=== PATIENT | male | born 1990 | race Caucasian/White ===

== ENCOUNTER 2016-11-12 22:07 | Emergency (ER) | payer OTHER ==
[~2016-11-12] VITALS: Ht 175.3 cm; Wt 92.0 kg
[~2016-11-12 22:07] MED LIST: DEPA500T3 PO; TRAZ50TA4 PO; VIST25CA PO
[2016-11-12 22:09] VITALS: BP 134/82; PULSE 98; RESP 16; TEMP 98; O2SAT 97
[2016-11-12] MEDS ORDERED: TRAZ50TA12 PO (22:40)
[2016-11-12] MEDS ORDERED: DEPA500T3 PO (22:41)
--- NOTE | 2016-11-12 23:39 | PD ---
HPI . Polysubstance abuse Chief Complaint: Alcohol/Drug Intoxication Time Seen by Provider: 22:46 Travel History International Travel<30 days: No Contact w/Intl Traveler<30days: No Traveled to known affect area: No History of Present Illness HPI Patient presents complaining with polysubstance abuse. He is here requesting detox. He does not have any homicidal or suicidal ideation. PFSH Past Medical History ADHD: Yes Bipolar Disorder: Yes Depression: Yes Cancer: No Cardiovascular Problems: Yes (HTN) Diabetes: No Diminished Hearing: No Hypertension: Yes Psychiatric: Yes Immunizations Current: Yes Migraines: No Schizophrenia: Yes Seizures: No Thyroid Disease: No Ulcer: No Tetanus Vaccination: Unknown Influenza Vaccination: No Past Surgical History Appendectomy: No Cholecystectomy: No Other Surgery: No Social History Alcohol Use: Yes (daily ) Tobacco Use: Yes Substance Use: Yes (crack , ice, marijuana, darvocet daily ) Allergies-Medications (Allergen,Severity, Reaction): Coded Allergies: No Known Allergies (Verified , 11/12/16) Reported Meds & Prescriptions Reported Meds & Active Scripts Active Reported Depakote ER (Divalproex Sodium) 500 Mg Darlyn 500 Mg PO DAILY Trazodone (Trazodone HCl) 50 Mg Tab 50 Mg PO HS Review of Systems Except as stated in HPI: all other systems reviewed are Neg Psychiatric: Positive: Substance Abuse, No: Suicidal Ideations, Mood Disorder , Homicidal Ideation Physical Exam Narrative GENERAL: Awake and alert and in no acute distress. SKIN: Warm and dry. CARDIOVASCULAR: Regular rate and rhythm. RESPIRATORY: No accessory muscle use. MUSCULOSKELETAL: No obvious deformities. No edema. NEUROLOGICAL: Awake and alert. No obvious cranial nerve deficits. Motor grossly within normal limits. Normal speech. PSYCHIATRIC: Appropriate mood and affect; insight and judgment normal. He does not appear acutely intoxicated. Data Data Last Documented VS Vital Signs Date Time Temp Pulse Resp B/P Pulse Ox O2 Delivery O2 Flow Rate FiO2 11/12/16 22:09 98.0 98 16 134/82 97 MDM Medical Decision Making Medical Screen Exam Complete: Yes Emergency Medical Condition: Yes Differential Diagnosis Differential diagnosis includes but is not limited to polysubstance abuse, suicidal ideation, manipulative behavior Narrative Course Patient presents to us requesting detox. He does not have suicidal or homicidal ideation. He is not acutely intoxicated. He has been instructed to follow-up at [facility] Diagnosis Primary Impression: Polysubstance abuse Additional Instructions: Follow up at [facility] Disposition: 01 DISCHARGE HOME Condition: Stable Rachelle English MD Nov 12, 2016 23:39
== END 2016-11-13 06:23 | disposition home or self-care (01) ==
LOC: NEPA 22:07
DX: F19.10 Other psychoactive substance abuse, uncomplicated (principal); I10 Essential (primary) hypertension; Z72.0 Tobacco use
CPT/HCPCS: 99283

== ENCOUNTER 2016-11-20 20:15 | Emergency (ER) | payer OTHER ==
[~2016-11-20] VITALS: Ht 175.3 cm; Wt 86.0 kg
[~2016-11-20 20:15] MED LIST changes: +TRAZ50TA12 PO; -TRAZ50TA4 PO; -VIST25CA PO
[2016-11-20 20:19] VITALS: BP 136/83; PULSE 118; RESP 14; TEMP 98.1; O2SAT 98
[2016-11-20 22:36] LABS: AUTOMATED NEUTROPHIL # 6.4 TH/MM3 (1.8-7.7); BASOPHIL % 0.3 % (0.0-2.0); EOSINOPHIL # 0.3 TH/MM3 (0-0.4); HEMATOCRIT 41.3 % (39.0-51.0); HEMO FLAGS DIFF FINAL; LYMPH % 30.5 % (9.0-44.0); LYMPHOCYTE # 3.2 TH/MM3 (1.0-4.8); MEAN CELL VOLUME 87.5 FL (80.0-100.0); MEAN CORPUSCULAR HEMOGLOBIN 29.7 PG (27.0-34.0); MONO % 6.4 % (0.0-8.0); NEUT % 59.8 % (16.0-70.0); PLATELET COUNT 369 TH/MM3 (150-450); RED BLOOD COUNT 4.72 MIL/MM3 (4.50-5.90); RED CELL DISTRIBUTION WIDTH 14.9 % (11.6-17.2); WHITE BLOOD COUNT 10.6 TH/MM3 (4.0-11.0)
[2016-11-20 22:42] LABS: BLOOD, URINE NEG (NEG); COMMENT (UR) CULT NOT INDICATED; CULTURE IF INDICATED CULT NOT INDICATED; GLUCOSE,URINE NEG (NEG); KETONE, URINE TRACE mg/dL (NEG); NITRITE,URINE NEG (NEG); URINE COLOR YELLOW (YELLW/STRAW)
[2016-11-20 22:47] LABS: AMPHETAMINE, URINE NEG (NEG); BARBITURATES, URINE NEG (NEG); COCAINE, URINE POS (NEG)
[2016-11-20 22:51] LABS: ANION GAP 8 MEQ/L (5-15)
[2016-11-20 22:54] LABS: ALKALINE PHOSPHATASE 78 U/L (45-117); ALT (GPT) 20 U/L (12-78); AST (GOT) 9 U/L (15-37); BLOOD UREA NITROGEN 6 MG/DL (7-18); CHLORIDE 104 MEQ/L (98-107); GLOMERULAR FILTRATION RATE 115 ML/MIN (>89); POTASSIUM 4.3 MEQ/L (3.5-5.1); SODIUM (NA) 139 MEQ/L (136-145); TOTAL BILIRUBIN ADULT 0.1 MG/DL (0.2-1.0)
--- NOTE | 2016-11-20 23:36 | PD ---
HPI Chief Complaint: Psychiatric Symptoms Time Seen by Provider: 23:33 Travel History International Travel<30 days: No Contact w/Intl Traveler<30days: No Traveled to known affect area: No History of Present Illness HPI 26-year-old white male presents to emergency department requesting detox. He states that he would like to get into detox program or go to the [facility]. He has been there in the past. He states that he had been staying in a hotel but he has no where to go at this time. He admits to smoking crack cocaine. He states that he does marijuana, opiates and benzos as well. He also admits alcohol on occasion. Patient denies any suicidal or homicidal ideation. He denies any recent illness. He states merely he would like detox PFSH Past Medical History ADHD: Yes Bipolar Disorder: Yes Depression: Yes Cancer: No Cardiovascular Problems: Yes (HTN) Diabetes: No Diminished Hearing: No Hypertension: Yes Psychiatric: Yes Immunizations Current: Yes Migraines: No Schizophrenia: Yes Seizures: No Thyroid Disease: No Ulcer: No Tetanus Vaccination: Unknown Past Surgical History Surgical History: No Previous Surgery Appendectomy: No Cholecystectomy: No Other Surgery: No Social History Alcohol Use: Yes (daily ) Tobacco Use: Yes Substance Use: Yes (crack , ice, marijuana, opiates, and benzos) Allergies-Medications (Allergen,Severity, Reaction): Coded Allergies: No Known Allergies (Verified , 11/20/16) Reported Meds & Prescriptions Reported Meds & Active Scripts Active No Active Prescriptions or Reported Medications Review of Systems Except as stated in HPI: all other systems reviewed are Neg Psychiatric: Positive: Depression, Mood Disorder, Substance Abuse, No: Anxiety , Suicidal Ideations, Disorder of Thought, Homicidal Ideation Physical Exam Narrative GENERAL: Well-nourished, well-developed patient. SKIN: Warm and dry. HEAD: Normocephalic and atraumatic. EYES: No scleral icterus. No injection or drainage. ENT: No nasal drainage noted. Mucous membranes pink. Airway patent. NECK: Supple, trachea midline. Moves head freely without obvious discomfort. CARDIOVASCULAR: Regular rate and rhythm without murmurs, gallops, or rubs. RESPIRATORY: Breath sounds equal bilaterally. No accessory muscle use. GASTROINTESTINAL: Abdomen soft, non-tender, nondistended. EXTREMITIES: No cyanosis or edema. BACK: Nontender without obvious deformity. No CVA tenderness. NEURO: Patient is alert and oriented. no sensorimotor deficits. Nonfocal. Normal speech. PSYCH: No delusions. No auditory or visual hallucinations. Data Data Last Documented VS Vital Signs Date Time Temp Pulse Resp B/P Pulse Ox O2 Delivery O2 Flow Rate FiO2 11/20/16 20:19 98.1 118 14 136/83 98 Room Air Orders Complete Blood Count With Diff (11/20/16 22:18) Comprehensive Metabolic Panel (11/20/16 22:18) Urinalysis - C+S If Indicated (11/20/16 22:18) Psych Screen (11/20/16 22:18) Drug Screen, Random Urine (11/20/16 22:18) Alcohol (Ethanol) (11/20/16 22:18) Labs Laboratory Tests Test 11/20/16 22:20 White Blood Count 10.6 TH/MM3 Red Blood Count 4.72 MIL/MM3 Hemoglobin 14.0 GM/DL Hematocrit 41.3 % Mean Corpuscular Volume 87.5 FL Mean Corpuscular Hemoglobin 29.7 PG Mean Corpuscular Hemoglobin 34.0 % Concent Red Cell Distribution Width 14.9 % Platelet Count 369 TH/MM3 Mean Platelet Volume 7.4 FL Neutrophils (%) (Auto) 59.8 % Lymphocytes (%) (Auto) 30.5 % Monocytes (%) (Auto) 6.4 % Eosinophils (%) (Auto) 3.0 % Basophils (%) (Auto) 0.3 % Neutrophils # (Auto) 6.4 TH/MM3 Lymphocytes # (Auto) 3.2 TH/MM3 Monocytes # (Auto) 0.7 TH/MM3 Eosinophils # (Auto) 0.3 TH/MM3 Basophils # (Auto) 0.0 TH/MM3 CBC Comment DIFF FINAL Differential Comment Urine Color YELLOW Urine Turbidity CLEAR Urine pH 6.0 Urine Specific Franklin 1.014 Urine Protein NEG mg/dL Urine Glucose (UA) NEG mg/dL Urine Ketones TRACE mg/dL Urine Occult Blood NEG Urine Nitrite NEG Urine Bilirubin NEG Urine Urobilinogen 2.0 MG/DL Urine Leukocyte Esterase NEG Urine WBC 1 /hpf Microscopic Urinalysis Comment CULT NOT INDICATED Sodium Level 139 MEQ/L Potassium Level 4.3 MEQ/L Chloride Level 104 MEQ/L Carbon Dioxide Level 27.0 MEQ/L Anion Gap 8 MEQ/L Blood Urea Nitrogen 6 MG/DL Creatinine 0.80 MG/DL Estimat Glomerular Filtration 115 ML/MIN Rate Random Glucose 99 MG/DL Calcium Level 8.5 MG/DL Total Bilirubin 0.1 MG/DL Aspartate Amino Transf 9 U/L (AST/SGOT) Alanine Aminotransferase 20 U/L (ALT/SGPT) Alkaline Phosphatase 78 U/L Total Protein 7.0 GM/DL Albumin 3.3 GM/DL Urine Opiates Screen NEG Urine Barbiturates Screen NEG Urine Amphetamines Screen NEG Urine Benzodiazepines Screen NEG Urine Cocaine Screen POS Urine Cannabinoids Screen NEG Ethyl Alcohol Level LESS THAN 3 MG/DL MDM Medical Decision Making Medical Screen Exam Complete: Yes Emergency Medical Condition: Yes Medical Record Reviewed: Yes Interpretation(s) Laboratory Tests Test 11/20/16 22:20 White Blood Count 10.6 TH/MM3 Red Blood Count 4.72 MIL/MM3 Hemoglobin 14.0 GM/DL Hematocrit 41.3 % Mean Corpuscular Volume 87.5 FL Mean Corpuscular Hemoglobin 29.7 PG Mean Corpuscular Hemoglobin 34.0 % Concent Red Cell Distribution Width 14.9 % Platelet Count 369 TH/MM3 Mean Platelet Volume 7.4 FL Neutrophils (%) (Auto) 59.8 % Lymphocytes (%) (Auto) 30.5 % Monocytes (%) (Auto) 6.4 % Eosinophils (%) (Auto) 3.0 % Basophils (%) (Auto) 0.3 % Neutrophils # (Auto) 6.4 TH/MM3 Lymphocytes # (Auto) 3.2 TH/MM3 Monocytes # (Auto) 0.7 TH/MM3 Eosinophils # (Auto) 0.3 TH/MM3 Basophils # (Auto) 0.0 TH/MM3 CBC Comment DIFF FINAL Differential Comment Urine Color YELLOW Urine Turbidity CLEAR Urine pH 6.0 Urine Specific Franklin 1.014 Urine Protein NEG mg/dL Urine Glucose (UA) NEG mg/dL Urine Ketones TRACE mg/dL Urine Occult Blood NEG Urine Nitrite NEG Urine Bilirubin NEG Urine Urobilinogen 2.0 MG/DL Urine Leukocyte Esterase NEG Urine WBC 1 /hpf Microscopic Urinalysis Comment CULT NOT INDICATED Sodium Level 139 MEQ/L Potassium Level 4.3 MEQ/L Chloride Level 104 MEQ/L Carbon Dioxide Level 27.0 MEQ/L Anion Gap 8 MEQ/L Blood Urea Nitrogen 6 MG/DL Creatinine 0.80 MG/DL Estimat Glomerular Filtration 115 ML/MIN Rate Random Glucose 99 MG/DL Calcium Level 8.5 MG/DL Total Bilirubin 0.1 MG/DL Aspartate Amino Transf 9 U/L (AST/SGOT) Alanine Aminotransferase 20 U/L (ALT/SGPT) Alkaline Phosphatase 78 U/L Total Protein 7.0 GM/DL Albumin 3.3 GM/DL Urine Opiates Screen NEG Urine Barbiturates Screen NEG Urine Amphetamines Screen NEG Urine Benzodiazepines Screen NEG Urine Cocaine Screen POS Urine Cannabinoids Screen NEG Ethyl Alcohol Level LESS THAN 3 MG/DL Differential Diagnosis Differential diagnoses: Alcohol intoxication, substance abuse, electrolyte abnormality, malingering Narrative Course This is substance abuse. We will attempt to find a detox facility. Scripts No Active Prescriptions or Reported Meds Condition: Salvador Gutierrez Nov 20, 2016 23:36
[2016-11-21 00:20] VITALS: BP 133/80; PULSE 104; RESP 16; O2SAT 97
[2016-11-21 04:20] VITALS: BP 137/84; PULSE 101; RESP 16; O2SAT 96
[2016-11-21 09:44] VITALS: BP 132/78; TEMP 98.2
== END 2016-11-21 09:46 ==
LOC: NEPB 20:15
DX: F19.10 Other psychoactive substance abuse, uncomplicated (principal); F14.10 Cocaine abuse, uncomplicated; F11.90 Opioid use, unspecified, uncomplicated; F12.90 Cannabis use, unspecified, uncomplicated; I10 Essential (primary) hypertension; F90.9 Attention-deficit hyperactivity disorder, unspecified type; F31.9 Bipolar disorder, unspecified; F32.9 Major depressive disorder, single episode, unspecified; F10.20 Alcohol dependence, uncomplicated; F20.9 Schizophrenia, unspecified; Z72.0 Tobacco use
CPT/HCPCS: 80053; 80307; 80320; 81001; 85025; 99284

== ENCOUNTER 2016-12-01 22:19 | Emergency (ER) | payer OTHER ==
[2016-12-01 22:22] VITALS: BP 143/79; PULSE 102; RESP 16; TEMP 97.9; O2SAT 97
== END 2016-12-01 23:36 | disposition left against medical advice (07) ==
LOC: NED 22:19
DX: R68.89 Other general symptoms and signs (principal)
CPT/HCPCS: 99281

== ENCOUNTER 2016-12-02 00:08 | Emergency (ER) | payer OTHER ==
[2016-12-02 00:09] VITALS: BP 132/61; PULSE 99; RESP 16; TEMP 98.2; O2SAT 97
--- NOTE | 2016-12-02 00:52 | PD ---
HPI Chief Complaint: Psychiatric Symptoms Time Seen by Provider: 00:46 Travel History International Travel<30 days: No Contact w/Intl Traveler<30days: No Traveled to known affect area: No History of Present Illness HPI Patient comes in requesting psychiatric evaluation. Patient states he uses drugs crack cocaine and others. Patient states he just doesn't feel right head. Patient states he's been out of his prescription of Seroquel feels like he needs his medications adjusted. Patient initially told triage nurse that he had thoughts of suicide however he currently denies any suicidal or homicidal ideations. Denies any medical complaints. Denies chest pain, shortness of breath, headache, fevers, nausea, vomiting, or abdominal pain. PFSH Past Medical History ADHD: Yes Bipolar Disorder: Yes Depression: Yes Cancer: No Cardiovascular Problems: Yes (HTN) Diabetes: No Diminished Hearing: No Hypertension: Yes Psychiatric: Yes Immunizations Current: Yes Migraines: No Schizophrenia: Yes Seizures: No Thyroid Disease: No Ulcer: No Past Surgical History Appendectomy: No Cholecystectomy: No Other Surgery: No Social History Alcohol Use: Yes (daily ) Tobacco Use: Yes Substance Use: Yes (crack , ice, marijuana, opiates, and benzos) Allergies-Medications (Allergen,Severity, Reaction): Coded Allergies: No Known Allergies (Verified , 12/02/16) Reported Meds & Prescriptions Reported Meds & Active Scripts Active No Active Prescriptions or Reported Medications Review of Systems Except as stated in HPI: all other systems reviewed are Neg Physical Exam Narrative GENERAL: Well-developed, well nourished, in no acute distress, and non-ill appearing. SKIN: Warm and dry. HEAD: Atraumatic. Normocephalic. EYES: Pupils equal and round. EOMI. No scleral icterus. No injection or drainage. ENT: No nasal bleeding or discharge. Mucous membranes pink and moist. NECK: Trachea midline. Supple. No nuclear rigidity. CARDIOVASCULAR: Regular rate and rhythm. No murmur appreciated. RESPIRATORY: No accessory muscle use. No respiratory distress. Clear to auscultation. Breath sounds equal bilaterally. MUSCULOSKELETAL: No obvious deformities. No clubbing. No cyanosis. No edema. Full range of motion. NEUROLOGICAL: Awake and alert. No obvious cranial nerve deficits. Motor grossly within normal limits. Normal speech. PSYCHIATRIC: Appropriate mood and affect; insight and judgment normal. Data Data Last Documented VS Vital Signs Date Time Temp Pulse Resp B/P Pulse Ox O2 Delivery O2 Flow Rate FiO2 12/02/16 00:09 98.2 99 16 132/61 97 Orders Complete Blood Count With Diff (12/02/16 00:45) Comprehensive Metabolic Panel (12/02/16 00:45) Psych Screen (12/02/16 00:45) Drug Screen, Random Urine (12/02/16 00:45) Alcohol (Ethanol) (12/02/16 00:45) Salicylates (Aspirin) (12/02/16 00:45) Tylenol (Acetaminophen) (12/02/16 00:45) Labs Laboratory Tests Test 12/02/16 00:55 White Blood Count 11.2 TH/MM3 Red Blood Count 4.69 MIL/MM3 Hemoglobin 13.9 GM/DL Hematocrit 40.9 % Mean Corpuscular Volume 87.2 FL Mean Corpuscular Hemoglobin 29.7 PG Mean Corpuscular Hemoglobin 34.1 % Concent Red Cell Distribution Width 14.6 % Platelet Count 345 TH/MM3 Mean Platelet Volume 7.5 FL Neutrophils (%) (Auto) 48.6 % Lymphocytes (%) (Auto) 35.4 % Monocytes (%) (Auto) 8.0 % Eosinophils (%) (Auto) 6.7 % Basophils (%) (Auto) 1.3 % Neutrophils # (Auto) 5.4 TH/MM3 Lymphocytes # (Auto) 4.0 TH/MM3 Monocytes # (Auto) 0.9 TH/MM3 Eosinophils # (Auto) 0.8 TH/MM3 Basophils # (Auto) 0.1 TH/MM3 CBC Comment DIFF FINAL Differential Comment Sodium Level 139 MEQ/L Potassium Level 3.7 MEQ/L Chloride Level 102 MEQ/L Carbon Dioxide Level 27.6 MEQ/L Anion Gap 9 MEQ/L Blood Urea Nitrogen 11 MG/DL Creatinine 0.70 MG/DL Estimat Glomerular Filtration 134 ML/MIN Rate Random Glucose 120 MG/DL Calcium Level 8.5 MG/DL Total Bilirubin 0.2 MG/DL Aspartate Amino Transf 9 U/L (AST/SGOT) Alanine Aminotransferase 17 U/L (ALT/SGPT) Alkaline Phosphatase 84 U/L Total Protein 6.8 GM/DL Albumin 3.4 GM/DL Salicylates Level 3.1 MG/DL Urine Opiates Screen NEG Acetaminophen Level LESS THAN 2.0 MCG/ML Urine Barbiturates Screen NEG Urine Amphetamines Screen NEG Urine Benzodiazepines Screen NEG Urine Cocaine Screen NEG Urine Cannabinoids Screen NEG Ethyl Alcohol Level LESS THAN 3 MG/DL MDM Medical Decision Making Medical Screen Exam Complete: Yes Emergency Medical Condition: Yes Medical Record Reviewed: Yes Differential Diagnosis Schizoaffective disorder, polysubstance abuse, substance-induced mood disorder, malingering, adjustment reaction, other Narrative Course Patient's medical record was reviewed and was noted the patient has been seen in the ER multiple times and found been lingering on multiple occasions secondary to poor weather outside secondary to the patient being homeless. Patient was cleared by psych for out patient follow up. Patient in no obvious distress upon re-evaluation. All pertinent laboratory result(s) discussed with patient/. Any questions/concerns in reference to patient diagnosis/condition discussed and clarified prior to patient's discharge. Reinforced sheer importance of close follow up with patient's primary physician or primary care clinic. Instructed patient to return to ED immediately, if symptoms return/worsen. Pt showed understanding of above instructions. Further instructions and recommendations were detailed in discharge paperwork. Pt ambulated without difficulty out of ED at discharge. Diagnosis Primary Impression: Malingering Referrals: [facility] Additional Instructions: Follow-up with your primary care physician this week. Return to the emergency department for any emergent conditions. Scripts No Active Prescriptions or Reported Meds Disposition: 01 DISCHARGE HOME Condition: Stable Ravinder Ramos Dec 02, 2016 00:52
[2016-12-02 01:07] LABS: AUTOMATED NEUTROPHIL # 5.4 TH/MM3 (1.8-7.7); BASOPHIL # 0.1 TH/MM3 (0-0.2); BASOPHIL % 1.3 % (0.0-2.0); EOSINOPHIL # 0.8 TH/MM3 (0-0.4); EOSINOPHIL % 6.7 % (0.0-4.0); HEMATOCRIT 40.9 % (39.0-51.0); HEMO FLAGS DIFF FINAL; LYMPH % 35.4 % (9.0-44.0); MEAN CELL VOLUME 87.2 FL (80.0-100.0); MEAN CORPUSCULAR HEMOGLOBIN 29.7 PG (27.0-34.0); MEAN CORPUSCULAR HGB CONC 34.1 % (32.0-36.0); NEUT % 48.6 % (16.0-70.0); PLATELET COUNT 345 TH/MM3 (150-450); RED BLOOD COUNT 4.69 MIL/MM3 (4.50-5.90); RED CELL DISTRIBUTION WIDTH 14.6 % (11.6-17.2); WHITE BLOOD COUNT 11.2 TH/MM3 (4.0-11.0)
[2016-12-02 01:18] LABS: AMPHETAMINE, URINE NEG (NEG); BARBITURATES, URINE NEG (NEG); COCAINE, URINE NEG (NEG)
[2016-12-02 01:28] LABS: ALT (GPT) 17 U/L (12-78); ANION GAP 9 MEQ/L (5-15); AST (GOT) 9 U/L (15-37); BICARBONATE 27.6 MEQ/L (21.0-32.0); BLOOD UREA NITROGEN 11 MG/DL (7-18); CHLORIDE 102 MEQ/L (98-107); GLOMERULAR FILTRATION RATE 134 ML/MIN (>89); POTASSIUM 3.7 MEQ/L (3.5-5.1); SODIUM (NA) 139 MEQ/L (136-145)
[2016-12-02 01:31] LABS: ACETAMINOPHEN LESS THAN 2.0 MCG/ML (10.0-30.0); ALKALINE PHOSPHATASE 84 U/L (45-117); TOTAL BILIRUBIN ADULT 0.2 MG/DL (0.2-1.0)
== END 2016-12-02 07:28 | disposition home or self-care (01) ==
LOC: NEPB 00:08
DX: R44.9 Unspecified symptoms and signs involving general sensations and perceptions (principal); I10 Essential (primary) hypertension; Z76.5 Malingerer [conscious simulation]; Z72.0 Tobacco use; Z59.0 Homelessness; Z86.59 Personal history of other mental and behavioral disorders
CPT/HCPCS: 80053; 80307; 85025; 99284

== ENCOUNTER 2016-12-04 07:00 | Emergency (ER) | payer OTHER ==
[~2016-12-04] VITALS: Ht 175.3 cm; Wt 86.0 kg
[2016-12-04 07:14] VITALS: BP 124/77; PULSE 78; RESP 17; TEMP 98.4; O2SAT 100
--- NOTE | 2016-12-04 07:28 | PD ---
HPI Chief Complaint: Psychiatric Symptoms Time Seen by Provider: 07:17 Travel History International Travel<30 days: No Contact w/Intl Traveler<30days: No Traveled to known affect area: No History of Present Illness HPI Patient is a 26-year-old male who presents emergency department for psychiatric evaluation. Patient told her triage nursing staff that he felt depressed and suicidal and wanted to jump in front of a moving vehicle. To me patient states that he is not suicidal, homicidal but is depressed and has been for the past for "a long time". Patient states that he was previously on some psychiatric medications but is not able to name them and is unable to tell me how long he sent off of them. When asked specifically if he feels suicidal or wants to hurt himself or anybody else patient states no. However when he was asked about his statement to her triage nursing staff, patient states that this is true. Patient is very evasive, and is a poor historian. Patient is been seen here in our emergency department several times recently for similar complaints with psychiatric evaluation. Patient stated to triage nursing staff that he had been drinking and using street drugs but denies any myself. PFSH Past Medical History ADHD: Yes Bipolar Disorder: Yes Depression: Yes Cancer: No Cardiovascular Problems: Yes (HTN) Diabetes: Yes Patient Takes Glucophage: No Diminished Hearing: No Hypertension: Yes Psychiatric: Yes Immunizations Current: Yes Migraines: No Schizophrenia: Yes Seizures: No Thyroid Disease: No Ulcer: No Past Surgical History Appendectomy: No Cholecystectomy: No Other Surgery: No Social History Alcohol Use: Yes (daily ) Tobacco Use: Yes Substance Use: Yes (crack , ice, marijuana, opiates, and benzos) Allergies-Medications (Allergen,Severity, Reaction): Coded Allergies: No Known Allergies (Verified , 12/02/16) Reported Meds & Prescriptions Reported Meds & Active Scripts Active No Active Prescriptions or Reported Medications Review of Systems ROS Limitations: Poor Historian Physical Exam Exam Limitations: Poor Historian Narrative GENERAL: Thin male in no acute distress SKIN: Warm and dry. HEAD: Normocephalic. EYES: Pupils equal and round. No scleral icterus. No injection or drainage. ENT: No nasal bleeding or discharge. Mucous membranes pink and moist. NECK: Supple CARDIOVASCULAR: Regular rate and rhythm. RESPIRATORY: No accessory muscle use. GASTROINTESTINAL: Abdomen soft, non-tender, nondistended. MUSCULOSKELETAL: No obvious deformities. No edema. NEUROLOGICAL: Awake and alert. Normal gait. Normal speech. PSYCHIATRIC: Blunted mood and affect with poor insight and judgment. Denies suicidal, homicidal ideation to myself but states that he has some suicidal ideation to nursing. Admits to feeling depressed Data Data Last Documented VS Vital Signs Date Time Temp Pulse Resp B/P Pulse Ox O2 Delivery O2 Flow Rate FiO2 12/04/16 07:14 98.4 78 17 124/77 100 Orders Psych Screen (12/04/16 07:19) Drug Screen, Random Urine (12/04/16 07:19) Alcohol (Ethanol) (12/04/16 07:19) MDM Medical Decision Making Medical Screen Exam Complete: Yes Emergency Medical Condition: Yes Medical Record Reviewed: Yes Differential Diagnosis 26-year-old male with history of polysubstance abuse, seizure effective/ antisocial personality disorder here with complaints of feeling depressed, and questionable suicidal ideation. Differential includes substance induced mood disorder, alcohol intoxication, depression, suicidal ideation, mood disorder NOS , schizoaffective disorder. Narrative Course Patient has had laboratory workup recently that was unremarkable. Blood alcohol and urine drug screen was ordered for psychiatric evaluation and patient was medically cleared. Diagnosis Primary Impression: Suicidal ideation Additional Impression: Substance induced mood disorder Scripts No Active Prescriptions or Reported Meds Miriam Dixon MD Dec 04, 2016 07:28
[2016-12-04 10:55] LABS: AMPHETAMINE, URINE NEG (NEG); BARBITURATES, URINE NEG (NEG); COCAINE, URINE POS (NEG)
[2016-12-04 11:01] VITALS: BP 122/72; PULSE 69; RESP 17; O2SAT 100
[2016-12-04 12:00] VITALS: BP 131/75; PULSE 87; RESP 18; TEMP 99; O2SAT 97
[2016-12-04 14:20] VITALS: BP 154/78; PULSE 84; RESP 18
[2016-12-04 18:05] VITALS: BP 128/68; PULSE 80; RESP 16
--- NOTE | 2016-12-04 20:13 | PD ---
History of Present Illness Chief Complaint: Psychiatric Symptoms Time Seen by Provider: 19:30 Travel History International Travel<30 Days: No Contact w/Intl Traveler<30days: No Known affected area: No Legal Status Legal Status: Gonzalez Act Gonzalez Act Signed By: Chad White History of Present Illness: History of Present Illness HPI Patient is a 26-year-old male with primary diagnosis history of substance abuse as well as substance induced mood disorder who presents to emergency department under a BA for psychiatric evaluation. Patient called the police and reported to them that he was sick of living and would like to run in front of a car. As per ED documentation included in this report " Patient told her triage nursing staff that he felt depressed and suicidal and wanted to jump in front of a moving vehicle. To me patient states that he is not suicidal, homicidal but is depressed and has been for the past for "a long time". Patient states that he was previously on some psychiatric medications but is not able to name them and is unable to tell me how long he sent off of them. When asked specifically if he feels suicidal or wants to hurt himself or anybody else patient states no. However when he was asked about his statement to her triage nursing staff, patient states that this is true. Patient is very evasive, and is a poor historian. EMR reviewed. This patient has been seen in ED multiple times in recent past for similar presentations. He frequently presents to the ed seeking halfway. He was recently evaluated and sent to the [facility] for treatment of substance abuse on November 20, 2016. Current toxicology is positive for cocaine. Patient is monitored in J pod. He has not presented any behavioral concerns other than having asked several times for discharge. I have kept him on the unit under close observation until I felt that he was able to be discharged safely. He denies suicidal or homicidal ideation. as well as denying any hallucinatory process. PFSH Past Medical History ADHD: Yes Bipolar Disorder: Yes Depression: Yes Cancer: No Cardiovascular Problems: Yes (HTN) Diabetes: Yes Patient Takes Glucophage: No Diminished Hearing: No Hypertension: Yes Psychiatric: Yes Immunizations Current: Yes Migraines: No Schizophrenia: Yes Seizures: No Thyroid Disease: No Ulcer: No Past Surgical History Appendectomy: No Cholecystectomy: No Other Surgery: No Psychiatric History Psychiatric History Hx Psychiatric Treatment: PT HAS A LONG PSYCHIATRIC HISTORY WITH HISTORY OF MULTIPLE INPATIENT ADMISSIONS. History of Inpatient Treatment: Yes Guns or firearms in home: No Social History Single male who reports he is staying with some friends Hx Alcohol Use: Yes (daily ) Hx Tobacco Use: Yes Hx Substance Use: Yes (crack , ice, marijuana, opiates, and benzos) Substance Use Type: Crack, Marijuana, Amphetamines-Stimulants, Benzos (Valium, Xanax), Heroin, Synth Opiates-Pain Pills Hx of Substance Use Treatment: Yes Family Psychiatric History None Allergies-Medications (Allergen,Severity, Reaction): Coded Allergies: No Known Allergies (Verified , 12/04/16) Reported Meds & Prescriptions Reported Meds & Active Scripts Active No Active Prescriptions or Reported Medications Review of Systems Except as stated in HPI: all other systems reviewed are Neg Exam Alert: Yes [place]: Person (ox4) Mood: Calm Affect: Labile Speech: Clear, Logical Eye Contact: Normal Memory Intact: Comment (not formally tetsted) Hallucinations: Other (deneis any) Delusions: No Suicidal: Ideation (deneis) Homicidal: Ideation (deneis any) Insight/Judgement poor . poor. MDM Medical Decision Making Medical Record Reviewed: Yes Assessment/Plan 26 year old male who has a hx of substance use who is under a BA after he called the police reporting his desire to . This in context of cocaine use. The patient was allowed ample time in J pod and exhibited no suicidality and no psychosis. He has requested discharge at this time. I have no reason to keep him here at this time. I strongly suspect that he fabricated suicidality in order to obtain halfway . Orders Psych Screen (12/04/16 07:19) Drug Screen, Random Urine (12/04/16 07:19) Alcohol (Ethanol) (12/04/16 07:19) Diet Regular Basic (12/04/16 Lunch) Diet Regular Basic (12/04/16 Dinner) Results Vital Signs Date Time Temp Pulse Resp B/P Pulse Ox O2 Delivery O2 Flow Rate FiO2 12/04/16 18:05 80 16 128/68 12/04/16 14:20 84 18 154/78 Room Air 12/04/16 12:00 99.0 87 18 131/75 97 Room Air 12/04/16 12:00 100 12/04/16 11:01 69 17 122/72 100 Room Air 12/04/16 07:14 98.4 78 17 124/77 100 Laboratory Tests Test 12/04/16 12/04/16 07:30 10:15 Ethyl Alcohol Level LESS THAN 3 Urine Opiates Screen NEG Urine Barbiturates Screen NEG Urine Amphetamines Screen NEG Urine Benzodiazepines Screen NEG Urine Cocaine Screen POS Urine Cannabinoids Screen NEG Diagnosis Primary Impression: Substance induced mood disorder Psychiatrically Cleared: Yes Referrals: [facility] (Out patient) as needed Departure Forms: Tests/Procedures Patient Instructions: General Instructions Additional Instructions: PLEASE RETURN TO EMERGENCY DEPARTMENT IF SYMPTOMS WORSEN Med/ Other Pt Specific Info: No Meds Exist/No RX given Prescriptions No Active Prescriptions or Reported Meds Disposition: 01 DISCHARGE HOME Condition: Stable Sharmila Zayas Dec 04, 2016 20:12
== END 2016-12-04 19:45 | disposition home or self-care (01) ==
LOC: NEPE 07:00 → NEPJ 19:45
DX: R45.851 Suicidal ideations (principal); F39 Unspecified mood [affective] disorder; F90.9 Attention-deficit hyperactivity disorder, unspecified type; F31.9 Bipolar disorder, unspecified; I10 Essential (primary) hypertension; E11.9 Type 2 diabetes mellitus without complications; F20.9 Schizophrenia, unspecified; F14.90 Cocaine use, unspecified, uncomplicated; F12.90 Cannabis use, unspecified, uncomplicated; F11.90 Opioid use, unspecified, uncomplicated; F15.90 Other stimulant use, unspecified, uncomplicated; Z72.0 Tobacco use
CPT/HCPCS: 80307; 99284

== ENCOUNTER 2016-12-05 01:18 | Emergency (ER) | payer OTHER ==
[2016-12-05 01:20] VITALS: BP 132/67; PULSE 92; RESP 14; TEMP 98.1; O2SAT 100
--- NOTE | 2016-12-05 02:14 | PD ---
HPI Chief Complaint: Psychiatric Symptoms Time Seen by Provider: 01:50 Travel History International Travel<30 days: No Contact w/Intl Traveler<30days: No Traveled to known affect area: No History of Present Illness HPI Patient comes emergency Department stating "I have no place to stay". Patient denies any suicidal or homicidal ideations. Patient denies any medical concerns. Denies any chest pain, shortness of breath, abdominal pain, fever, nausea, vomiting, or diarrhea. PFSH Past Medical History ADHD: Yes Bipolar Disorder: Yes Depression: Yes Cancer: No Cardiovascular Problems: Yes (HTN) Diabetes: Yes Diminished Hearing: No Hypertension: Yes Psychiatric: Yes Immunizations Current: Yes Migraines: No Schizophrenia: Yes Seizures: No Thyroid Disease: No Ulcer: No Past Surgical History Appendectomy: No Cholecystectomy: No Other Surgery: No Social History Alcohol Use: Yes (daily ) Tobacco Use: Yes Substance Use: Yes (crack , ice, marijuana, opiates, and benzos) Allergies-Medications (Allergen,Severity, Reaction): Coded Allergies: No Known Allergies (Verified , 12/05/16) Reported Meds & Prescriptions Reported Meds & Active Scripts Active No Active Prescriptions or Reported Medications Review of Systems Except as stated in HPI: all other systems reviewed are Neg Physical Exam Narrative GENERAL: Well-developed, well nourished, in no acute distress, and non-ill appearing. SKIN: Warm and dry. HEAD: Atraumatic. Normocephalic. EYES: Pupils equal and round. EOMI. No scleral icterus. No injection or drainage. ENT: No nasal bleeding or discharge. Mucous membranes pink and moist. NECK: Trachea midline. Supple. No nuclear rigidity. RESPIRATORY: No accessory muscle use. No respiratory distress. MUSCULOSKELETAL: No obvious deformities. No clubbing. No cyanosis. No edema. Full range of motion. NEUROLOGICAL: Awake and alert. No obvious cranial nerve deficits. Motor grossly within normal limits. Normal speech. PSYCHIATRIC: Appropriate mood and affect; insight and judgment normal. Data Data Last Documented VS Vital Signs Date Time Temp Pulse Resp B/P Pulse Ox O2 Delivery O2 Flow Rate FiO2 12/05/16 01:20 98.1 92 14 132/67 100 Room Air MDM Medical Decision Making Medical Screen Exam Complete: Yes Emergency Medical Condition: No Differential Diagnosis Malingering, substance abuse, homeless, other Narrative Course Patient in no obvious distress upon re-evaluation. Reinforced sheer importance of close follow up with Mitch Chi. Instructed patient to return to ED immediately for any emergent issues. Pt showed understanding of above instructions. Further instructions and recommendations were detailed in discharge paperwork. Pt ambulated without difficulty out of ED at discharge. Diagnosis Primary Impression: Malingering Additional Impression: Homeless Referrals: [facility] Additional Instructions: Follow-up with Epifanio Chi as previously instructed. Return to the emergency department for any emergent concerns. Scripts No Active Prescriptions or Reported Meds Disposition: 01 DISCHARGE HOME Condition: Stable Ravinder Ramos Dec 05, 2016 02:14
== END 2016-12-05 02:22 | disposition left against medical advice (07) ==
LOC: NEPA 01:18
DX: Z76.5 Malingerer [conscious simulation] (principal); Z59.0 Homelessness
CPT/HCPCS: 99281

== ENCOUNTER 2016-12-07 01:49 | Emergency (ER) | payer OTHER ==
[~2016-12-07] VITALS: Ht 175.3 cm; Wt 85.0 kg
[2016-12-07] MEDS ORDERED: SERO100T PO (02:11)
[2016-12-07] MEDS ORDERED: DEPA500T PO (02:11)
[2016-12-07 02:13] VITALS: BP 144/67; PULSE 101; RESP 20; TEMP 97.6; O2SAT 100
[2016-12-07 05:32] VITALS: BP 104/55; PULSE 96; RESP 20; O2SAT 97
--- NOTE | 2016-12-07 06:49 | PD ---
HPI Chief Complaint: Psychiatric Symptoms Time Seen by Provider: 06:46 Travel History International Travel<30 days: No Contact w/Intl Traveler<30days: No Traveled to known affect area: No History of Present Illness HPI 26-year-old white male with a history of polysubstance abuse presents to emergency department under Gonzalez act by PD. The patient contacted PD that if he did not get treatment for his substance abuse he would commit suicide. He stated that he was stabbed himself in the face. The patient admits to smoking crack cocaine prior to coming in. The patient denies any toxic ingestions. No homicidal ideation. No acute medical complaints. PFSH Past Medical History ADHD: Yes Bipolar Disorder: Yes Depression: Yes Cancer: No Cardiovascular Problems: Yes (HTN) Diabetes: Yes Diminished Hearing: No Hypertension: Yes Psychiatric: Yes Immunizations Current: Yes Migraines: No Schizophrenia: Yes Seizures: No Thyroid Disease: No Ulcer: No Tetanus Vaccination: > 5 Years Influenza Vaccination: No Past Surgical History Surgical History: No Previous Surgery Appendectomy: No Cholecystectomy: No Other Surgery: No Social History Alcohol Use: Yes (case beer per day) Tobacco Use: Yes (one pack) Substance Use: Yes (COCAINE) Allergies-Medications (Allergen,Severity, Reaction): Coded Allergies: No Known Allergies (Verified , 12/07/16) Reported Meds & Prescriptions Reported Meds & Active Scripts Active Reported Seroquel (Quetiapine Fumarate) 100 Mg Tab 100 Mg PO HS Depakote DR (Divalproex Sodium) 500 Mg Tabdr 500 Mg PO HS Review of Systems Except as stated in HPI: all other systems reviewed are Neg Psychiatric: Positive: Depression, Suicidal Ideations, Mood Disorder, Substance Abuse, No: Anxiety, Homicidal Ideation Physical Exam Narrative GENERAL: Well-nourished, well-developed patient. SKIN: Warm and dry. HEAD: Normocephalic and atraumatic. EYES: No scleral icterus. No injection or drainage. ENT: No nasal drainage noted. Mucous membranes pink. Airway patent. NECK: Supple, trachea midline. Moves head freely without obvious discomfort. CARDIOVASCULAR: Regular rate and rhythm without murmurs, gallops, or rubs. RESPIRATORY: Breath sounds equal bilaterally. No accessory muscle use. GASTROINTESTINAL: Abdomen soft, non-tender, nondistended. EXTREMITIES: No cyanosis or edema. BACK: Nontender without obvious deformity. No CVA tenderness. NEURO: Patient is alert and oriented. no sensorimotor deficits. Nonfocal. Normal speech. PSYCH: No delusions. No auditory or visual hallucinations. Data Data Last Documented VS Vital Signs Date Time Temp Pulse Resp B/P Pulse Ox O2 Delivery O2 Flow Rate FiO2 12/07/16 05:32 96 20 104/55 97 12/07/16 02:13 97.6 Orders Psych Screen (12/07/16 03:21) MDM Medical Decision Making Medical Screen Exam Complete: Yes Emergency Medical Condition: Yes Medical Record Reviewed: Yes Differential Diagnosis MDM: High Differential diagnoses: Schizophrenia, schizoaffective disorder, bipolar, anxiety, depression, adjustment reaction, mood disorder NOS, ODD, depressive disorder NOS, dementia, dementia with agitation, psychosis NOS, substance induced mood disorder, intermittent explosive disorder, Asperger syndrome, infection,electrolyte abnormality, malingering. Narrative Course Mental health screening discussed with the patient. Psychiatric screen ordered. This is a patient who I have seen in the past. I do not believe we need any additional laboratory testing serum medically clear him. I do not believe that the patient is truly suicidal ice suspect he is malingering due to his substance abuse and homelessness. This is substance induced mood disorder Diagnosis Primary Impression: Substance induced mood disorder Additional Impression: Polysubstance abuse Condition: Salvador Gutierrez Dec 07, 2016 06:49
[2016-12-07 08:15] VITALS: BP 103/53; PULSE 95; RESP 16; O2SAT 94
[2016-12-07 12:19] VITALS: BP 105/57
== END 2016-12-07 12:28 ==
LOC: NEPA 01:49
DX: F39 Unspecified mood [affective] disorder (principal); F17.210 Nicotine dependence, cigarettes, uncomplicated; I10 Essential (primary) hypertension; E11.9 Type 2 diabetes mellitus without complications; F20.9 Schizophrenia, unspecified; F31.9 Bipolar disorder, unspecified
CPT/HCPCS: 99284

== ENCOUNTER 2017-01-05 00:47 | Emergency (ER) | payer OTHER ==
[~2017-01-05] VITALS: Ht 172.7 cm; Wt 72.0 kg
[~2017-01-05 00:47] MED LIST changes: +DEPA500T PO; -DEPA500T3 PO; +SERO100T PO; -TRAZ50TA12 PO
[2017-01-05 01:15] VITALS: BP 122/59; PULSE 82; RESP 16; TEMP 98.7
[2017-01-05 01:43] LABS: AUTOMATED NEUTROPHIL # 6.3 TH/MM3 (1.8-7.7); BASOPHIL # 0.1 TH/MM3 (0-0.2); BASOPHIL % 0.6 % (0.0-2.0); EOSINOPHIL # 0.5 TH/MM3 (0-0.4); EOSINOPHIL % 5.3 % (0.0-4.0); HEMO FLAGS DIFF FINAL; LYMPH % 24.1 % (9.0-44.0); LYMPHOCYTE # 2.5 TH/MM3 (1.0-4.8); MEAN CELL VOLUME 87.5 FL (80.0-100.0); MEAN CORPUSCULAR HEMOGLOBIN 29.4 PG (27.0-34.0); MEAN CORPUSCULAR HGB CONC 33.6 % (32.0-36.0); MONO % 9.6 % (0.0-8.0); NEUT % 60.4 % (16.0-70.0); PLATELET COUNT 288 TH/MM3 (150-450); RED BLOOD COUNT 4.46 MIL/MM3 (4.50-5.90); RED CELL DISTRIBUTION WIDTH 13.8 % (11.6-17.2); WHITE BLOOD COUNT 10.5 TH/MM3 (4.0-11.0)
[2017-01-05 01:44] LABS: BLOOD, URINE NEG (NEG); GLUCOSE,URINE NEG (NEG); KETONE, URINE NEG (NEG); NITRITE,URINE NEG (NEG); PH, URINE 7.5 (5.0-8.5); URINE COLOR LIGHT-YELLOW (YELLW/STRAW)
[2017-01-05 01:49] LABS: COMMENT (UR) CULT NOT INDICATED; CULTURE IF INDICATED CULT NOT INDICATED
[2017-01-05 01:51] LABS: AMPHETAMINE, URINE NEG (NEG); BARBITURATES, URINE NEG (NEG); COCAINE, URINE NEG (NEG)
[2017-01-05 02:49] LABS: ALT (GPT) 19 U/L (12-78); ANION GAP 6 MEQ/L (5-15); AST (GOT) 14 U/L (15-37); BICARBONATE 28.7 MEQ/L (21.0-32.0); BLOOD UREA NITROGEN 6 MG/DL (7-18); CHLORIDE 102 MEQ/L (98-107); GLOMERULAR FILTRATION RATE 130 ML/MIN (>89); POTASSIUM 3.7 MEQ/L (3.5-5.1); SODIUM (NA) 137 MEQ/L (136-145)
[2017-01-05 02:50] LABS: ALKALINE PHOSPHATASE 86 U/L (45-117); TOTAL BILIRUBIN ADULT 0.2 MG/DL (0.2-1.0)
--- NOTE | 2017-01-05 03:06 | PD ---
HPI Chief Complaint: Psychiatric Symptoms Time Seen by Provider: 00:57 Travel History International Travel<30 days: No Contact w/Intl Traveler<30days: No Traveled to known affect area: No History of Present Illness HPI The patient is a 26 year old male who presents to the [facility] emergency department with a history of being brought in as a Gonzalez act. On my arrival to the room, the patient is sleeping soundly. He is arousable to voice although he quickly falls back to sleep. He reports that he is here in the emergency department for evaluation of "mental health problems". When asked of the patient is currently taking any medication, the patient again falls back to sleep. From reviewing the patient's Gonzalez act, the patient was found by the police out in front of the hospital stating that he wanted to jump out in front of a car. The patient does report at this time that he has been experiencing suicidal ideations. The patient has been seen in the emergency department previously with suicidal ideations and polysubstance abuse. The patient's review of systems was limited as the patient will not stay awake to cooperate with answering questions. [facility] Past Medical History Narrative Medical The patient's past medical history is obtained through the electronic medical record and his significant for bipolar disorder, hypertension, diabetes mellitus , history of schizophrenia, history of polysubstance abuse ADHD: Yes Bipolar Disorder: Yes Depression: Yes Cancer: No Cardiovascular Problems: Yes (HTN) Diabetes: Yes Diminished Hearing: No Hypertension: Yes Psychiatric: Yes Immunizations Current: Yes Migraines: No Schizophrenia: Yes Seizures: No Thyroid Disease: No Ulcer: No Past Surgical History Narrative Surgical The patient's past surgical history is reportedly none. Appendectomy: No Cholecystectomy: No Other Surgery: No Social History Alcohol Use: Yes (case beer per day) Tobacco Use: Yes (one pack) Substance Use: Yes (COCAINE) Allergies-Medications (Allergen,Severity, Reaction): Coded Allergies: No Known Allergies (Verified , 12/07/16) Reported Meds & Prescriptions Reported Meds & Active Scripts Active Reported Seroquel (Quetiapine Fumarate) 100 Mg Tab 100 Mg PO HS Depakote DR (Divalproex Sodium) 500 Mg Tabdr 500 Mg PO HS Review of Systems ROS Limitations: Intoxication, Refused Except as stated in HPI: all other systems reviewed are Neg Psychiatric: Positive: Depression, Suicidal Ideations, Mood Disorder, Substance Abuse Endocrine: No: Polydipsia Hematologic/Lymphatic: No: Easy Bruising Physical Exam Narrative General: The patient is a well-developed well-nourished male, drowsy on examination, having difficulty staying awake to answer questions. Head and Neck exam: Head is normocephalic atraumatic. Eyes: EOMI, pupils are equal round and reactive to light. Nose: Midline septum with pink mucous membranes Mouth: Dentition unremarkable. Moist mucus membranes. Posterior oropharynx is not erythematous. No tonsillar hypertrophy. Uvula midline. Airway patent. Neck: No palpable lymphadenopathy. No nuchal rigidity. No thyromegaly. Cardiovascular: Regular rate and rhythm without murmurs, gallops, or rubs. Lungs: Clear to auscultation bilaterally. No wheezes, rhonchi, or rales. Abdomen: Soft, without tenderness to palpation in all 4 quadrants of the abdomen. No guarding, rebound, or rigidity. Normal bowel sounds are audible. Extremities: No clubbing, cyanosis, or edema. No calf tenderness on palpation. Back: No costovertebral angle tenderness to palpation. Neurologic Exam: The patient is uncooperative with formal neurologic testing although he does not have any evidence of facial asymmetry. The patient will stay awake briefly to answer some questions and then rolls back over and falls back asleep. The patient is moving all extremities with equal 5 over 5 strength , intact sensation over all dermatomes. The patient is oriented to person, place, and time. Skin Exam: No rash noted. Intact skin that is warm and dry. Data Data Last Documented VS Vital Signs Date Time Temp Pulse Resp B/P Pulse Ox O2 Delivery O2 Flow Rate FiO2 01/05/17 17:32 87 18 130/83 96 Room Air 01/05/17 01:15 98.7 Orders Complete Blood Count With Diff (01/05/17 01:26) Comprehensive Metabolic Panel (01/05/17 01:26) Urinalysis - C+S If Indicated (01/05/17 01:26) Drug Screen, Random Urine (01/05/17 01:26) Valproic Acid (Depakene) (01/05/17 03:06) Alcohol (Ethanol) (01/05/17 03:06) Psych Screen (01/05/17 04:36) Diet Regular Basic (01/05/17 Breakfast) Diet Regular Basic (01/05/17 Lunch) Diet Regular Basic (01/05/17 Dinner) Guaifenesin Liq (Robitussin Liq) (01/05/17 15:15) Benzonatate (Tessalon) (01/05/17 15:15) Labs Laboratory Tests Test 01/05/17 01:10 White Blood Count 10.5 TH/MM3 Red Blood Count 4.46 MIL/MM3 Hemoglobin 13.1 GM/DL Hematocrit 39.0 % Mean Corpuscular Volume 87.5 FL Mean Corpuscular Hemoglobin 29.4 PG Mean Corpuscular Hemoglobin 33.6 % Concent Red Cell Distribution Width 13.8 % Platelet Count 288 TH/MM3 Mean Platelet Volume 7.6 FL Neutrophils (%) (Auto) 60.4 % Lymphocytes (%) (Auto) 24.1 % Monocytes (%) (Auto) 9.6 % Eosinophils (%) (Auto) 5.3 % Basophils (%) (Auto) 0.6 % Neutrophils # (Auto) 6.3 TH/MM3 Lymphocytes # (Auto) 2.5 TH/MM3 Monocytes # (Auto) 1.0 TH/MM3 Eosinophils # (Auto) 0.5 TH/MM3 Basophils # (Auto) 0.1 TH/MM3 CBC Comment DIFF FINAL Differential Comment Urine Color LIGHT-YELLOW Urine Turbidity CLEAR Urine pH 7.5 Urine Specific [place] 1.006 Urine Protein NEG mg/dL Urine Glucose (UA) NEG mg/dL Urine Ketones NEG mg/dL Urine Occult Blood NEG Urine Nitrite NEG Urine Bilirubin NEG Urine Urobilinogen LESS THAN 2.0 MG/DL Urine Leukocyte Esterase NEG Urine RBC LESS THAN 1 /hpf Urine WBC 2 /hpf Microscopic Urinalysis Comment CULT NOT INDICATED Sodium Level 137 MEQ/L Potassium Level 3.7 MEQ/L Chloride Level 102 MEQ/L Carbon Dioxide Level 28.7 MEQ/L Anion Gap 6 MEQ/L Blood Urea Nitrogen 6 MG/DL Creatinine 0.72 MG/DL Estimat Glomerular Filtration 130 ML/MIN Rate Random Glucose 107 MG/DL Calcium Level 8.4 MG/DL Total Bilirubin 0.2 MG/DL Aspartate Amino Transf 14 U/L (AST/SGOT) Alanine Aminotransferase 19 U/L (ALT/SGPT) Alkaline Phosphatase 86 U/L Total Protein 6.5 GM/DL Albumin 3.1 GM/DL Urine Opiates Screen NEG Urine Barbiturates Screen NEG Valproic Acid (Depakene) Level LESS THAN 3 MCG/ML Urine Amphetamines Screen NEG Urine Benzodiazepines Screen NEG Urine Cocaine Screen NEG Urine Cannabinoids Screen NEG Ethyl Alcohol Level LESS THAN 3 MG/DL MDM Medical Decision Making Medical Screen Exam Complete: Yes Emergency Medical Condition: Yes Medical Record Reviewed: Yes Differential Diagnosis Depression with suicidal ideations, versus substance induced mood disorder, versus malingering Narrative Course During the course of the patients emergency department visit, the patients history, examination, and differential diagnosis were reviewed with the patient. The patient had IV access obtained and blood work sent for analysis. The patient was on a youth nutritional monitor with oximetry and blood pressure monitoring. The patient's Gonzalez act was reviewed. The patient was made aware that he will be waiting for evaluation by the psychiatric screener. The patients laboratory studies were reviewed and remarkable for a white count of 10.5, hemoglobin 13.1, platelets 288 with 9.6 monocytes, CMP is remarkable for a BUN of 6, glucose 107, AST 14, albumin 3.1. Urinalysis is unremarkable. Urine drug screen is negative. Alcohol level is less than 3. The patient has been medically cleared for evaluation by the psychiatric screener under a Gonzalez act. Diagnosis Primary Impression: Depression with suicidal ideation Selma Booth MD Jan 05, 2017 03:06
[2017-01-05 04:24] VITALS: BP 108/74; PULSE 118; RESP 19; O2SAT 98
[2017-01-05 06:25] VITALS: BP 137/63; PULSE 87; RESP 19; O2SAT 96
[2017-01-05 11:00] VITALS: BP 131/89; PULSE 74; RESP 18; O2SAT 98
[2017-01-05] MEDS ORDERED: guaiFENesin SOLUTION 200 MG/10 ML CUP PO ONE (15:15)
[2017-01-05] MEDS ORDERED: BENZONATATE 100 MG CAP PO ONE (15:15)
[2017-01-05 17:32] VITALS: BP 130/83; PULSE 87; RESP 18; O2SAT 96
--- NOTE | 2017-01-05 20:35 | MB ---
cc: LUKASZ SOARES DATE OF CONSULTATION 01/05/17 REQUESTING PHYSICIAN Emergency department REASON FOR CONSULTATION Gonzalez Act HISTORY OF PRESENT ILLNESS Mr. Ceballos is a 26-year-old male with a chart history of substance use disorder and associated mood disorder as well as malingering who presents under a Gonzalez Act from [facility] Department alleging that the patient said that he wanted to jump in front of a car. Reviewing the electronic medical record, I note the patient has been seen repeatedly in the ED for drug induced mood disorder as well as for malingering. He was seen most recently by psychiatry by nurse practitioner Marquez in November of this year and was released from the ED at that time. The patient seen and examined. Chart reviewed. Case discussed with nurse in the J pod. Per nursing staff, there has been no evidence of any suicidality or homicidality while under observation in the J pod. On my evaluation today, the patient is calm and cooperative with examination. He is requesting discharge from the psychiatric emergency room. He admits that he malingered the suicidal ideation in order to obtain temporary penitentiary. He reports that he now has arranged for penitentiary with a friend and wishes to be discharged from the ED so that he can go stay with that friend. He denies any suicidal or homicidal ideation, intent or plan on direct questioning. Mood is reportedly stable and I can elicit no depressive or hypomanic/manic symptoms. He denies any audiovisual hallucinations and I can elicit no delusional beliefs. The remainder of the psychiatric ROS is negative. PAST PSYCHIATRIC HISTORY The patient is unsure of any prior psychiatric diagnoses. He has chart diagnosis as noted above. He says that he has not seen an outpatient psychiatrist in "a long time" by which I am able to ascertain that he means several years. He reports that he was hospitalized most recently at [facility] about 3 or 4 weeks ago under similar circumstances to today. He denies any history of actual suicide attempts. FAMILY HISTORY The patient denies any family history of serious mental illness, substance use disorder or suicide. CHEMICAL DEPENDENCY HISTORY: Patient's toxicology is presently negative. He denies any recent substance use within the last week or two. He says that his drug of choice is cannabis when he does use. SOCIAL HISTORY The patient reports that he has found temporary housing with a friend. He has a girlfriend. He has no children. He has an 11th grade education. He has no income. He does not presently work. He denies any or legal history. Denies any access to guns or firearms. Denies any alevism or spiritual beliefs. PAST MEDICAL HISTORY The patient denies any history of medical problems. REVIEW OF SYSTEMS The patient has a nonproductive cough. No reported headache, vision or hearing changes, chest pain, shortness of breath, bowel or bladder issues. No other physical complaints. He says that he is experiencing a URI. PHYSICAL EXAMINATION Vital signs reviewed. Physical examination was completed in the emergency room by the ER staff. On my examination today, I find a well-nourished, well-developed male in no acute physical distress. He appears to be attending to his basic needs. No motoric abnormalities noted. LABORATORY Reviewed. MENTAL STATUS EXAM The patient is in hospital gown. He is somewhat disheveled but maintaining basic hygiene and attending to his basic needs. He is awake and alert and oriented x3. No evidence of delirium. No motor abnormalities noted. Speech is within normal limits for rate, tone and volume. Language and fund of knowledge seem average. Mood is fair and affect is full and reactive. Thought process linear. No loosening of associations. No evident delusions. Denies audiovisual hallucinations. Denies suicidal or homicidal ideation, intent or plan. Insight and judgment are fair. ASSESSMENT/PLAN 1. Malingering for penitentiary, Z76.5. 2. History of substance use disorder. This is a 26-year-old male with psychiatric history as detailed above who presents under Gonzalez Act. On my examination today, the patient is requesting discharge from the psychiatric emergency room. He admits that he malingered suicidal ideation as he was temporarily without stable housing. He has arranged for housing now and wishes to be discharged from the ED. He denies any suicidal or homicidal ideation. I can detect no unstable mood, anxiety or psychotic disorder in this patient at this time. He appears to be attending to his basic needs. Putting the above information together, I surfboard designer the patient does not presently meet Gonzalez Act criteria. I have lifted the Gonzalez Act. I have recommended that the patient follow up psychiatrically on an outpatient basis and we will provide a referral. I have recommended that the patient continue to abstain from substance use. I have counseled the patient regarding warning signs for need to return to the psychiatric emergency room as part of general safety plan. The patient is otherwise psychiatrically clear for discharge from the emergency room. Thank you very much for this consultation. Lukasz HA /5:17 PM /8:25 PM ANTOINE
== END 2017-01-05 20:17 | disposition home or self-care (01) ==
LOC: NEPJ 00:47
DX: R45.851 Suicidal ideations (principal); I10 Essential (primary) hypertension; F17.200 Nicotine dependence, unspecified, uncomplicated; Z76.5 Malingerer [conscious simulation]; Z79.899 Other long term (current) drug therapy
CPT/HCPCS: 80053; 80164; 80307; 81001; 85025; 99283

== ENCOUNTER 2017-01-07 23:23 | Emergency (ER) | payer OTHER ==
[~2017-01-07] VITALS: Ht 180.3 cm; Wt 80.0 kg
[2017-01-07 23:33] VITALS: BP 121/76; PULSE 102; RESP 18; TEMP 98.8; O2SAT 98
[2017-01-07 23:56] LABS: AUTOMATED NEUTROPHIL # 5.4 TH/MM3 (1.8-7.7); BASOPHIL # 0.1 TH/MM3 (0-0.2); BASOPHIL % 0.8 % (0.0-2.0); EOSINOPHIL # 0.5 TH/MM3 (0-0.4); EOSINOPHIL % 5.1 % (0.0-4.0); HEMATOCRIT 38.6 % (39.0-51.0); HEMO FLAGS DIFF FINAL; LYMPH % 33.2 % (9.0-44.0); LYMPHOCYTE # 3.4 TH/MM3 (1.0-4.8); MEAN CELL VOLUME 86.3 FL (80.0-100.0); MEAN CORPUSCULAR HEMOGLOBIN 30.4 PG (27.0-34.0); MEAN CORPUSCULAR HGB CONC 35.2 % (32.0-36.0); MONO % 7.8 % (0.0-8.0); NEUT % 53.1 % (16.0-70.0); PLATELET COUNT 333 TH/MM3 (150-450); RED BLOOD COUNT 4.48 MIL/MM3 (4.50-5.90); RED CELL DISTRIBUTION WIDTH 13.7 % (11.6-17.2); WHITE BLOOD COUNT 10.3 TH/MM3 (4.0-11.0)
[2017-01-08 00:03] LABS: AMPHETAMINE, URINE NEG (NEG); BARBITURATES, URINE NEG (NEG); COCAINE, URINE NEG (NEG)
[2017-01-08 00:21] LABS: ANION GAP 7 MEQ/L (5-15); AST (GOT) 10 U/L (15-37); BICARBONATE 27.9 MEQ/L (21.0-32.0); BLOOD UREA NITROGEN 11 MG/DL (7-18); CHLORIDE 102 MEQ/L (98-107); GLOMERULAR FILTRATION RATE 115 ML/MIN (>89); POTASSIUM 3.9 MEQ/L (3.5-5.1); SODIUM (NA) 137 MEQ/L (136-145)
[2017-01-08 00:25] LABS: ACETAMINOPHEN LESS THAN 2.0 MCG/ML (10.0-30.0); ALKALINE PHOSPHATASE 96 U/L (45-117); ALT (GPT) 21 U/L (12-78); TOTAL BILIRUBIN ADULT 0.1 MG/DL (0.2-1.0)
--- NOTE | 2017-01-08 00:44 | PD ---
HPI Chief Complaint: Psychiatric Symptoms Time Seen by Provider: 23:39 Travel History International Travel<30 days: No Contact w/Intl Traveler<30days: No Traveled to known affect area: No History of Present Illness HPI 26 yo M BA reports crystal meth abuse today and arrives as BA. Pt told PD he would walk into traffic. In ER pt has no complaint and states he has no place to go. He also complains of hunger and thirst. He denies HI/SI. Location psychiatric. Timing: constant. Pt denies drug abuse. He denies IVDA. PFSH Past Medical History ADHD: Yes Bipolar Disorder: Yes Depression: Yes Cancer: No Cardiovascular Problems: Yes (HTN) Diabetes: Yes Diminished Hearing: No Hypertension: Yes Psychiatric: Yes Immunizations Current: Yes Migraines: No Schizophrenia: Yes Seizures: No Thyroid Disease: No Ulcer: No Tetanus Vaccination: Unknown Influenza Vaccination: No Past Surgical History Appendectomy: No Cholecystectomy: No Other Surgery: No Social History Alcohol Use: Yes (case beer per day) Tobacco Use: Yes (one pack) Substance Use: Yes (COCAINE) Allergies-Medications (Allergen,Severity, Reaction): Coded Allergies: No Known Allergies (Verified , 12/07/16) Reported Meds & Prescriptions Reported Meds & Active Scripts Active Reported Seroquel (Quetiapine Fumarate) 100 Mg Tab 100 Mg PO HS Depakote DR (Divalproex Sodium) 500 Mg Tabdr 500 Mg PO HS Review of Systems Except as stated in HPI: all other systems reviewed are Neg General / Constitutional: No: Fever, Chills Physical Exam Narrative GENERAL: 26 yo M, WNWD, resting comfortably on bed SKIN: Warm and dry. HEAD: Atraumatic. Normocephalic. EYES: Pupils equal and round. No scleral icterus. No injection or drainage. ENT: No nasal bleeding or discharge. Mucous membranes pink and moist. NECK: Trachea midline. No JVD. CARDIOVASCULAR: Regular rate and rhythm. RESPIRATORY: No accessory muscle use. Clear to auscultation. Breath sounds equal bilaterally. GASTROINTESTINAL: Abdomen soft, non-tender, nondistended. Hepatic and splenic margins not palpable. MUSCULOSKELETAL: Extremities without clubbing, cyanosis, or edema. No obvious deformities. NEUROLOGICAL: Awake and alert. No obvious cranial nerve deficits. Motor grossly within normal limits. Five out of 5 muscle strength in the arms and legs. Normal speech. PSYCHIATRIC: Denies SI/HI. Cooperative. Data Data Last Documented VS Vital Signs Date Time Temp Pulse Resp B/P Pulse Ox O2 Delivery O2 Flow Rate FiO2 01/07/17 23:33 98.8 102 18 121/76 98 Orders Complete Blood Count With Diff (01/07/17 23:39) Comprehensive Metabolic Panel (01/07/17 23:39) Psych Screen (01/07/17 23:39) Drug Screen, Random Urine (01/07/17 23:39) Alcohol (Ethanol) (01/07/17 23:39) Tylenol (Acetaminophen) (01/07/17 23:39) Labs Laboratory Tests Test 01/07/17 23:45 White Blood Count 10.3 TH/MM3 Red Blood Count 4.48 MIL/MM3 Hemoglobin 13.6 GM/DL Hematocrit 38.6 % Mean Corpuscular Volume 86.3 FL Mean Corpuscular Hemoglobin 30.4 PG Mean Corpuscular Hemoglobin 35.2 % Concent Red Cell Distribution Width 13.7 % Platelet Count 333 TH/MM3 Mean Platelet Volume 7.4 FL Neutrophils (%) (Auto) 53.1 % Lymphocytes (%) (Auto) 33.2 % Monocytes (%) (Auto) 7.8 % Eosinophils (%) (Auto) 5.1 % Basophils (%) (Auto) 0.8 % Neutrophils # (Auto) 5.4 TH/MM3 Lymphocytes # (Auto) 3.4 TH/MM3 Monocytes # (Auto) 0.8 TH/MM3 Eosinophils # (Auto) 0.5 TH/MM3 Basophils # (Auto) 0.1 TH/MM3 CBC Comment DIFF FINAL Differential Comment Sodium Level 137 MEQ/L Potassium Level 3.9 MEQ/L Chloride Level 102 MEQ/L Carbon Dioxide Level 27.9 MEQ/L Anion Gap 7 MEQ/L Blood Urea Nitrogen 11 MG/DL Creatinine 0.80 MG/DL Estimat Glomerular Filtration 115 ML/MIN Rate Random Glucose 105 MG/DL Calcium Level 8.6 MG/DL Total Bilirubin 0.1 MG/DL Aspartate Amino Transf 10 U/L (AST/SGOT) Alanine Aminotransferase 21 U/L (ALT/SGPT) Alkaline Phosphatase 96 U/L Total Protein 6.6 GM/DL Albumin 3.1 GM/DL Urine Opiates Screen NEG Acetaminophen Level LESS THAN 2.0 MCG/ML Urine Barbiturates Screen NEG Urine Amphetamines Screen NEG Urine Benzodiazepines Screen NEG Urine Cocaine Screen NEG Urine Cannabinoids Screen POS Ethyl Alcohol Level LESS THAN 3 MG/DL MDM Medical Decision Making Medical Screen Exam Complete: Yes Emergency Medical Condition: Yes Medical Record Reviewed: Yes Differential Diagnosis Altered mental status/psychosis due to infection/environmental exposure/ metabolic abnormality, polypharmacy, alcohol abuse/intoxication, illicit or prescribed drug abuse, malingering/secondary gain, non-organic psychiatric disease Narrative Course CBC & BMP Diagram 01/07/17 23:45 EtOH < 3 Drug screen + for cannabinioids The history of present illness, ROS, physical exam, review of records and medical workup performed for today's visit have reasonably safely excluded organic etiologies for the patient's presenting complaint. We will continue to monitor the patient carefully in the ER until time of evaluation by the psychiatry service. We are available for any additional medical assistance if needed during the patient's ER course. Disposition per discretion of psychiatry is appreciated. Diagnosis Primary Impression: Polysubstance abuse Additional Impressions: Malingering Suicidal ideation Additional Instructions: You have a choice when it comes to health care, and we are glad that you chose [facility]. Hopefully, we have met your expectations on today's visit. You are welcome to return to [facility] at any time, as we are committed to meeting the health care needs of our community. Med/Other Pt SpecificInfo: No Change to Meds Disposition: 01 DISCHARGE HOME Condition: Stable Nicholas May MD Jan 08, 2017 00:43
[2017-01-08 02:33] VITALS: BP 125/74; PULSE 108; RESP 19; TEMP 98.9; O2SAT 98
== END 2017-01-08 03:53 ==
LOC: NEPD 23:23 → NEPJ 01-08 03:53
DX: F19.10 Other psychoactive substance abuse, uncomplicated (principal); R45.851 Suicidal ideations; F90.9 Attention-deficit hyperactivity disorder, unspecified type; F31.9 Bipolar disorder, unspecified; I10 Essential (primary) hypertension; E11.9 Type 2 diabetes mellitus without complications; F20.9 Schizophrenia, unspecified; F17.210 Nicotine dependence, cigarettes, uncomplicated; F14.90 Cocaine use, unspecified, uncomplicated; F12.90 Cannabis use, unspecified, uncomplicated; Z76.5 Malingerer [conscious simulation]
CPT/HCPCS: 80053; 80307; 85025; 99284

== ENCOUNTER 2017-01-08 20:44 | Emergency (ER) | payer OTHER ==
[~2017-01-08] VITALS: Ht 177.8 cm; Wt 70.0 kg
[2017-01-08 20:46] VITALS: BP 125/71; PULSE 93; RESP 14; TEMP 98.7; O2SAT 98
--- NOTE | 2017-01-08 21:11 | PD ---
HPI Chief Complaint: Cold / Flu Symptoms Time Seen by Provider: 21:05 Travel History International Travel<30 days: No Contact w/Intl Traveler<30days: No Traveled to known affect area: No History of Present Illness HPI This is a 26-year-old male who presents for evaluation of cough. Symptom onset a few days ago. The cough is dry. Denies any shortness of breath, sore throat , fevers or chills. He does endorse tobacco use. He is also complaining of hunger. He reports that he is homeless and is requesting something to eat. He has no other complaints at this time. History Past Medical Histgory Hx Cancer: No Social History Alcohol Use: Yes (case beer per day) Tobacco Use: Yes (one pack) Allergies-Medications (Allergen,Severity, Reaction): Coded Allergies: No Known Allergies (Verified , 01/08/17) Reported Meds & Prescriptions Reported Meds & Active Scripts Active Reported Seroquel (Quetiapine Fumarate) 100 Mg Tab 100 Mg PO HS Depakote DR (Divalproex Sodium) 500 Mg Tabdr 500 Mg PO HS Review of Systems General / Constitutional: No: Fever, Chills HENT: No: Sore Throat, Congestion Respiratory: Positive: Cough Gastrointestinal: No: Nausea, Vomiting, Abdominal Pain Physical Exam Narrative GENERAL: Well-developed well-nourished male in no acute distress SKIN: Warm and dry. HEAD: Atraumatic. Normocephalic. EYES: Pupils equal and round. No scleral icterus. No injection or drainage. ENT: No nasal bleeding or discharge. Mucous membranes pink and moist. NECK: Trachea midline. No JVD. CARDIOVASCULAR: Regular rate and rhythm. No murmur appreciated. RESPIRATORY: No accessory muscle use. Clear to auscultation. Breath sounds equal bilaterally. GASTROINTESTINAL: Abdomen soft, non-tender, nondistended. Hepatic and splenic margins not palpable. Data Data Last Documented VS Vital Signs Date Time Temp Pulse Resp B/P Pulse Ox O2 Delivery O2 Flow Rate FiO2 01/08/17 20:46 98.7 93 14 125/71 98 Room Air MDM Medical Screen Exam Complete: Yes Emergency Medical Condition: No Narrative Course This is a 26-year-old male who presents requesting something to eat and also requests evaluation for nonproductive cough. Physical examination is unremarkable. Per chart review the patient was just seen here yesterday under Carlos act. He was diagnosed with polysubstance abuse, malingering and suicidal ideation. There is no emergent medical condition at this time. The patient appears well. He likely has a viral upper respiratory infection. He has once again been instructed to go to the homeless coalition or the [facility] in order to get assistance with his homelessness. A medical screening exam was performed: At the time of evaluation the presenting medical condition was determined not to be of an emergent nature. The patient was given the option of receiving additional care, but declined. Patient was given options for additional community resources from which to obtain care. The Patient Has Been advised to seek medical attention for their presenting complaint. The patient has been advised to return to the ER at any time if an emergent condition develops. Primary Impression: Encounter for medical screening examination Pedro Alvarez Jan 08, 2017 21:11
== END 2017-01-08 21:19 | disposition left against medical advice (07) ==
LOC: NEPK 20:44
DX: R05 Cough (principal)
CPT/HCPCS: 99281

== ENCOUNTER 2017-01-11 01:34 | Emergency (ER) | payer OTHER ==
[2017-01-11 02:24] VITALS: BP 157/80; PULSE 89; RESP 16; TEMP 97.6; O2SAT 99
[2017-01-11] MEDS ORDERED: BACT800T5 PO (02:39)
--- NOTE | 2017-01-11 02:43 | PD ---
HPI Chief Complaint: Medical Clearance Time Seen by Provider: 02:40 Travel History International Travel<30 days: No Contact w/Intl Traveler<30days: No Traveled to known affect area: No History of Present Illness HPI 26-year-old homeless white male presents to emergency department by PD requesting something to eat and a place to sleep. He states that he has no money and is on the streets. He does smoke methamphetamine. He does also complain of cough, congestion and general malaise. States that he feels weak because he has not been eating. He denies any nausea vomiting. No abdominal pain or diarrhea. No suicidal homicidal ideation. He is from [place]. PFSH Past Medical History ADHD: Yes Bipolar Disorder: Yes Depression: Yes Cancer: No Cardiovascular Problems: Yes (HTN) Diabetes: Yes Diminished Hearing: No Hypertension: Yes Psychiatric: Yes Immunizations Current: Yes Migraines: No Schizophrenia: Yes Seizures: No Thyroid Disease: No Ulcer: No Past Surgical History Appendectomy: No Cholecystectomy: No Other Surgery: No Social History Alcohol Use: Yes (case beer per day) Tobacco Use: Yes (one pack) Substance Use: Yes (COCAINE, CRACK) Allergies-Medications (Allergen,Severity, Reaction): Coded Allergies: No Known Allergies (Verified , 01/11/17) Reported Meds & Prescriptions Reported Meds & Active Scripts Active Bactrim DS (Sulfamethoxazole-Trimethoprim) 800-160 Mg Tab 1 Tab PO BID Reported Seroquel (Quetiapine Fumarate) 100 Mg Tab 100 Mg PO HS Depakote DR (Divalproex Sodium) 500 Mg Tabdr 500 Mg PO HS Review of Systems Except as stated in HPI: all other systems reviewed are Neg Physical Exam Narrative GENERAL: Well-developed, well-nourished in no acute distress. Nontoxic appearing. HEAD: Normocephalic, atraumatic. EYES: Pupils equal round and reactive. Extraocular motions intact. No scleral icterus. No injection or drainage. ENT: TMs clear without erythema. The external auditory canals clear. Nose: clear . Posterior pharynx is pink and moist. No tonsillar edema or exudate. Uvula midline. Airway patent. NECK: Trachea midline.Supple, nontender, moves head freely. No central bony tenderness or spasm. CARDIOVASCULAR: Regular rate and rhythm without murmurs, gallops, or rubs. RESPIRATORY: Clear to auscultation. Breath sounds equal bilaterally. No wheezes , rales, or rhonchi. GASTROINTESTINAL: Abdomen soft, non-tender, nondistended. No hepato-splenomegaly , or palpable masses. No guarding. EXTREMITIES: No clubbing, cyanosis, or edema. No joint tenderness, effusion, or edema noted. BACK: Nontender without deformity or crepitance. No flank tenderness. Data Data Last Documented VS Vital Signs Date Time Temp Pulse Resp B/P Pulse Ox O2 Delivery O2 Flow Rate FiO2 01/11/17 02:24 97.6 89 16 157/80 99 MDM Medical Decision Making Medical Screen Exam Complete: Yes Emergency Medical Condition: Yes Medical Record Reviewed: Yes Differential Diagnosis MDM: High Differential diagnoses: Pneumonia, bronchitis, URI, asthma, RAD, legionnaire's disease, SARS, ARDS, influenza, bronchiolitis, RSV,PE,CHF Narrative Course This of bronchitis, homelessness Diagnosis Primary Impression: Bronchitis Additional Impressions: Homelessness Substance abuse Patient Instructions: General Instructions Additional Instructions: Rest. Increase fluids. Tylenol and Advil. Robitussin-DM. Bactrim DS. Stop smoking methamphetamine. Follow-up Epifanio Chi Followup with your DrMarcell in one week. Return to the ER for any problems. Med/Other Pt SpecificInfo: Prescription(s) given Scripts Sulfamethoxazole-Trimethoprim (Bactrim DS)800-160 Mg Tab1 Tab PO BID #14 TAB Prov:Nicholas May MD 01/11/17 Disposition: 01 DISCHARGE HOME Condition: Stable Salvador Live Jan 11, 2017 02:42
== END 2017-01-11 03:01 | disposition home or self-care (01) ==
LOC: NEPD 01:34
DX: J40 Bronchitis, not specified as acute or chronic (principal); F19.10 Other psychoactive substance abuse, uncomplicated; I10 Essential (primary) hypertension; E11.9 Type 2 diabetes mellitus without complications; F17.200 Nicotine dependence, unspecified, uncomplicated; Z59.0 Homelessness; Z86.59 Personal history of other mental and behavioral disorders; Z86.79 Personal history of other diseases of the circulatory system
CPT/HCPCS: 99282

== ENCOUNTER 2017-01-11 04:10 | Emergency (ER) | payer OTHER ==
[~2017-01-11 04:10] MED LIST changes: +BACT800T5 PO
== END 2017-01-11 04:15 | disposition left against medical advice (07) ==
LOC: NED 04:10
DX: Z53.21 Procedure and treatment not carried out due to patient leaving prior to being seen by health care provider (principal)
CPT/HCPCS: 99281

== ENCOUNTER 2017-02-09 19:54 | Emergency (ER) | payer OTHER ==
[~2017-02-09] VITALS: Ht 172.7 cm; Wt 75.0 kg
[2017-02-09 20:13] VITALS: BP 121/72; PULSE 101; RESP 16; TEMP 98.3; O2SAT 96
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
--- NOTE | 2017-02-09 20:34 | RADRPT ---
EXAM DATE/TIME: 02/09/2017 20:21 [facility] COMPARISON: No previous studies available for comparison. INDICATIONS : Right ankle pain. MEDICAL HISTORY : None. SURGICAL HISTORY : None. ENCOUNTER: Initial ACUITY: 1 day PAIN SCORE: 5/10 LOCATION: Right ankle. FINDINGS: Three view exam was performed of the right ankle. The bony structures are in normal alignment. No e vidence of fracture, dislocation, or soft tissue swelling. The ankle mortise is intact. No radiopaq ue foreign bodies are seen. Bony mineralization is normal. CONCLUSION: Unremarkable exam. Juan Carlos Catherine MD on February 09, 2017 at 20:32 Board Certified Radiologist. This report was verified electronically.
--- NOTE | 2017-02-09 20:34 | RADRPT ---
EXAM DATE/TIME: 02/09/2017 20:20 [facility] COMPARISON: No previous studies available for comparison. INDICATIONS : Right foot pain. MEDICAL HISTORY : None. SURGICAL HISTORY : None. ENCOUNTER: Initial ACUITY: 1 day PAIN SCORE: 5/10 LOCATION: Right foot. FINDINGS: Three view examination of the right foot demonstrates no soft tissue swelling, dislocation, or fractu re. The tarsal bones appear intact. The interphalangeal and metatarsophalangeal joints are intact. The calcaneus is intact. Bony mineralization is normal. CONCLUSION: Unremarkable exam. Juan Carlos Catherine MD on February 09, 2017 at 20:32 Board Certified Radiologist. This report was verified electronically.
[2017-02-09 20:52] LABS: AUTOMATED NEUTROPHIL # 7.6 TH/MM3 (1.8-7.7); BASOPHIL # 0.1 TH/MM3 (0-0.2); BASOPHIL % 1.1 % (0.0-2.0); EOSINOPHIL # 0.1 TH/MM3 (0-0.4); EOSINOPHIL % 0.9 % (0.0-4.0); HEMATOCRIT 40.5 % (39.0-51.0); HEMO FLAGS DIFF FINAL; LYMPH % 20.8 % (9.0-44.0); LYMPHOCYTE # 2.3 TH/MM3 (1.0-4.8); MEAN CELL VOLUME 87.2 FL (80.0-100.0); MEAN CORPUSCULAR HEMOGLOBIN 29.3 PG (27.0-34.0); MEAN CORPUSCULAR HGB CONC 33.6 % (32.0-36.0); NEUT % 70.2 % (16.0-70.0); PLATELET COUNT 298 TH/MM3 (150-450); RED BLOOD COUNT 4.64 MIL/MM3 (4.50-5.90); RED CELL DISTRIBUTION WIDTH 13.8 % (11.6-17.2); WHITE BLOOD COUNT 10.9 TH/MM3 (4.0-11.0)
[2017-02-09 21:05] LABS: AMPHETAMINE, URINE POS (NEG); BARBITURATES, URINE NEG (NEG); COCAINE, URINE POS (NEG)
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
[2017-02-09 21:15] LABS: ANION GAP 7 MEQ/L (5-15)
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
[2017-02-09 21:19] LABS: ALKALINE PHOSPHATASE 94 U/L (45-117); ALT (GPT) 21 U/L (12-78); AST (GOT) 13 U/L (15-37); BICARBONATE 27.3 MEQ/L (21.0-32.0); BLOOD UREA NITROGEN 14 MG/DL (7-18); CHLORIDE 106 MEQ/L (98-107); GLOMERULAR FILTRATION RATE 100 ML/MIN (>89); SODIUM (NA) 140 MEQ/L (136-145); TOTAL BILIRUBIN ADULT 0.3 MG/DL (0.2-1.0)
--- NOTE | 2017-02-09 21:30 | PD ---
Physical Exam Date Seen by Provider: February 09, 2017 Narrative Patient is here as a Gonzalez Act Data Data Last Documented VS Vital Signs Date Time Temp Pulse Resp B/P Pulse Ox O2 Delivery O2 Flow Rate FiO2 02/09/17 20:15 16 02/09/17 20:13 98.3 101 121/[address] Brain W/O Iv Contrast(Rout) (02/09/17 20:11) Ct Facial Bones W/O Iv Cont (02/09/17 20:11) Ankle, Complete (Hha4lth) (02/09/17 20:11) Foot, Complete (Skk1mil) (02/09/17 20:11) Complete Blood Count With Diff (02/09/17 20:11) Comprehensive Metabolic Panel (02/09/17 20:11) Psych Screen (02/09/17 20:11) Drug Screen, Random Urine (02/09/17 20:11) Alcohol (Ethanol) (02/09/17 20:11) Labs Laboratory Tests Test 02/09/17 20:35 White Blood Count 10.9 TH/MM3 Red Blood Count 4.64 MIL/MM3 Hemoglobin 13.6 GM/DL Hematocrit 40.5 % Mean Corpuscular Volume 87.2 FL Mean Corpuscular Hemoglobin 29.3 PG Mean Corpuscular Hemoglobin 33.6 % Concent Red Cell Distribution Width 13.8 % Platelet Count 298 TH/MM3 Mean Platelet Volume 7.6 FL Neutrophils (%) (Auto) 70.2 % Lymphocytes (%) (Auto) 20.8 % Monocytes (%) (Auto) 7.0 % Eosinophils (%) (Auto) 0.9 % Basophils (%) (Auto) 1.1 % Neutrophils # (Auto) 7.6 TH/MM3 Lymphocytes # (Auto) 2.3 TH/MM3 Monocytes # (Auto) 0.8 TH/MM3 Eosinophils # (Auto) 0.1 TH/MM3 Basophils # (Auto) 0.1 TH/MM3 CBC Comment DIFF FINAL Differential Comment Sodium Level 140 MEQ/L Potassium Level 4.0 MEQ/L Chloride Level 106 MEQ/L Carbon Dioxide Level 27.3 MEQ/L Anion Gap 7 MEQ/L Blood Urea Nitrogen 14 MG/DL Creatinine 0.90 MG/DL Estimat Glomerular Filtration 100 ML/MIN Rate Random Glucose 95 MG/DL Calcium Level 8.8 MG/DL Total Bilirubin 0.3 MG/DL Aspartate Amino Transf 13 U/L (AST/SGOT) Alanine Aminotransferase 21 U/L (ALT/SGPT) Alkaline Phosphatase 94 U/L Total Protein 6.7 GM/DL Albumin 3.5 GM/DL Urine Opiates Screen NEG Urine Barbiturates Screen NEG Urine Amphetamines Screen POS Urine Benzodiazepines Screen NEG Urine Cocaine Screen POS Urine Cannabinoids Screen NEG Ethyl Alcohol Level LESS THAN 3 MG/DL MDM Supervised Visit with JAYCEE: Yes Narrative Course I, Dr. English, have reviewed the advance practice practitioner's documentation and am in agreement, met with the patient face to face, made the diagnosis, and the medical decision making was done by me. *My assessment and Findings: Last Impressions Maxillofacial CT 02/09/172010 Signed Impressions: Service Date/Time: Thursday, February 09, 2017 20:54 - CONCLUSION: 1. No acute fracture or malalignment. 2. Mucosal thickening in the left maxillary sinus and ethmoidal air cells. Juan Carlos Catherine MD Head CT 02/09/172010 Signed Impressions: Service Date/Time: Thursday, February 09, 2017 20:51 - CONCLUSION: Negative trauma CT or Juan Carlos Catherine MD Foot X-Ray 02/09/172010 Signed Impressions: Service Date/Time: Thursday, February 09, 2017 20:20 - CONCLUSION: Unremarkable exam. Juan Carlos Catherine MD Ankle X-Ray 02/09/172010 Signed Impressions: Service Date/Time: Thursday, February 09, 2017 20:21 - CONCLUSION: Unremarkable exam. Juan Carlos Catherine MD The plain films were independently viewed by me. CBC & BMP Diagram 02/09/17 20:35 [facility] screen is positive for amphetamines and cocaine. This patient is medically clear for psychiatric evaluation. Diagnosis Primary Impression: Mood disorder Condition: Stable Rachelle English MD February 09, 2017 21:30
[2017-02-09 22:07] VITALS: BP 123/70; PULSE 96; RESP 18; O2SAT 97
[2017-02-10 02:15] VITALS: BP 126/58; PULSE 77; RESP 19; O2SAT 98
[2017-02-11] MEDS ORDERED: DICL75TA PO (01:02)
[2017-02-11] MEDS ORDERED: IBUPROFEN 600 MG TAB ONE (01:10)
== END 2017-02-10 04:00 ==
LOC: NEPD 19:54 → NEPJ 02-10 04:00
DX: F39 Unspecified mood [affective] disorder (principal); R51 Headache; M25.571 Pain in right ankle and joints of right foot; I10 Essential (primary) hypertension; F17.200 Nicotine dependence, unspecified, uncomplicated; Z86.59 Personal history of other mental and behavioral disorders; Z86.79 Personal history of other diseases of the circulatory system; W50.0XXA Accidental hit or strike by another person, initial encounter
CPT/HCPCS: 70450; 70486; 73610; 73630; 80053; 80307; 85025

== ENCOUNTER 2017-02-11 00:51 | Emergency (ER) | payer OTHER ==
[~2017-02-11] VITALS: Ht 177.8 cm; Wt 80.0 kg
[2017-02-11 00:54] VITALS: BP 120/77; PULSE 97; RESP 16; TEMP 98.4; O2SAT 97
[2017-02-11] MEDS ORDERED: DICL75TA PO (01:02)
--- NOTE | 2017-02-11 01:05 | PD ---
HPI Chief Complaint: Injury Time Seen by Provider: 01:02 Travel History International Travel<30 days: No Contact w/Intl Traveler<30days: No Traveled to known affect area: No History of Present Illness HPI 26-year-old white male presents to emergency department by EMS with complaints of right ankle pain. This is a patient was seen here 2 days ago for a right foot and ankle injury. He had x-rays done at that time which were negative. He states that he has pain with ambulation. He states the pain is moderate. Worse with walking. No alleviating factors. PFSH Past Medical History ADHD: Yes Bipolar Disorder: Yes Depression: Yes Cancer: No Cardiovascular Problems: Yes (HTN) Diabetes: No Diminished Hearing: No Hypertension: Yes Psychiatric: Yes Immunizations Current: Yes Migraines: No Schizophrenia: Yes Seizures: No Thyroid Disease: No Ulcer: No Tetanus Vaccination: Unknown Influenza Vaccination: No Past Surgical History Surgical History: No Previous Surgery Appendectomy: No Cholecystectomy: No Other Surgery: No Social History Alcohol Use: Yes (case beer per day) Tobacco Use: Yes (one pack) Substance Use: Yes (COCAINE CRACK AND METHAMPHEDIMINE) Allergies-Medications (Allergen,Severity, Reaction): Coded Allergies: No Known Allergies (Verified , 02/11/17) Reported Meds & Prescriptions Reported Meds & Active Scripts Active No Active Prescriptions or Reported Medications Review of Systems Except as stated in HPI: all other systems reviewed are Neg Physical Exam Narrative GENERAL: This is a well-nourished, well-developed patient, in no apparent distress. SKIN: No rashes, ecchymoses or lesions. Warm and dry. HEAD: Atraumatic. Normocephalic. EYES: PERRL, EOMI, no discharge or injection. No scleral icterus. EARS: Clear NOSE: Nasal turbinates appear normal. THROAT: Mucosa pink and moist. Airway patent. NECK: Trachea midline. supple, moves head freely. LUNGS: Clear to auscultation. CV: Regular in rhythm. ABDOMEN: Soft nontender. EXT: No clubbing cyanosis or edema. Examination of the right lower extremity reveals pain to the injured talofibular ligament. No pain over the medial lateral malleolus. No pain in the heel or Achilles. The patient ambulates with a normal gait. Neurovascular intact. Data Data Last Documented VS Vital Signs Date Time Temp Pulse Resp B/P Pulse Ox O2 Delivery O2 Flow Rate FiO2 02/11/17 00:54 98.4 97 16 120/77 97 Room Air Orders Splint Or Brace Apply/Monitor (02/11/17 01:01) Ibuprofen (Motrin) (02/11/17 01:15) MDM Medical Decision Making Medical Screen Exam Complete: Yes Emergency Medical Condition: Yes Medical Record Reviewed: Yes Interpretation(s) I reviewed the patient's x-ray of his right ankle which was read as negative by radiology. Differential Diagnosis MDM: High Differential diagnoses: Fracture, sprain, strain, dislocation, contusion, neurovascular injury Narrative Course This is right ankle sprain. Patient is given Motrin 600 mg by mouth an Alber wrap. Diagnosis Primary Impression: Right ankle sprain Qualified Code: S93.421D - Sprain of deltoid ligament of right ankle, subsequent encounter Patient Instructions: General Instructions Additional Instructions: Rest. Elevation. Ice packs for the next 3 days. Alber wrap. Weight-bearing as tolerated. Medications as directed Follow-up with an orthopedist or your doctor in one week. Return to the ER if any problems Med/Other Pt SpecificInfo: Prescription(s) given Scripts Diclofenac Sodium DR 75 Mg Tabdr75 Mg PO BID #20 TAB Prov:Caden Sher MD 02/11/17 Disposition: 01 DISCHARGE HOME Condition: Stable [facility] Live February 11, 2017 01:05
[2017-02-11] MEDS ORDERED: IBUPROFEN 600 MG TAB PO ONE (01:15)
== END 2017-02-11 01:19 | disposition home or self-care (01) ==
LOC: NEPK 00:51
DX: S93.421D Sprain of deltoid ligament of right ankle, subsequent encounter (principal); I10 Essential (primary) hypertension; F17.200 Nicotine dependence, unspecified, uncomplicated; Z86.79 Personal history of other diseases of the circulatory system; Z86.59 Personal history of other mental and behavioral disorders; X58.XXXD Exposure to other specified factors, subsequent encounter
CPT/HCPCS: 99283

== ENCOUNTER 2017-02-28 01:53 | Emergency (ER) | payer OTHER ==
[~2017-02-28] VITALS: Ht 177.8 cm; Wt 78.0 kg
[~2017-02-28 01:53] MED LIST changes: -BACT800T5 PO; -DEPA500T PO; +DICL75TA PO; -SERO100T PO
[2017-02-28 02:01] VITALS: BP 126/72; PULSE 88; RESP 20; TEMP 97.6; O2SAT 96
[2017-02-28 02:24] LABS: AUTOMATED NEUTROPHIL # 5.2 TH/MM3 (1.8-7.7); BASOPHIL # 0.1 TH/MM3 (0-0.2); BASOPHIL % 1.3 % (0.0-2.0); EOSINOPHIL # 0.4 TH/MM3 (0-0.4); EOSINOPHIL % 3.9 % (0.0-4.0); HEMATOCRIT 42.6 % (39.0-51.0); HEMO FLAGS DIFF FINAL; LYMPH % 38.4 % (9.0-44.0); LYMPHOCYTE # 4.2 TH/MM3 (1.0-4.8); MEAN CELL VOLUME 87.5 FL (80.0-100.0); MEAN CORPUSCULAR HEMOGLOBIN 30.2 PG (27.0-34.0); MEAN CORPUSCULAR HGB CONC 34.5 % (32.0-36.0); MONO % 8.6 % (0.0-8.0); NEUT % 47.8 % (16.0-70.0); PLATELET COUNT 337 TH/MM3 (150-450); RED BLOOD COUNT 4.87 MIL/MM3 (4.50-5.90); RED CELL DISTRIBUTION WIDTH 13.9 % (11.6-17.2); WHITE BLOOD COUNT 10.9 TH/MM3 (4.0-11.0)
--- NOTE | 2017-02-28 02:31 | PD ---
HPI Chief Complaint: Psychiatric Symptoms Time Seen by Provider: 02:27 Travel History International Travel<30 days: No Contact w/Intl Traveler<30days: No Traveled to known affect area: No History of Present Illness HPI 26-year-old white male presents to emergency department under Gonzalez act by PD. The patient had notified PD this evening that he wanted to get back on his medications for his bipolar disorder. He denies any suicidal or homicidal ideation. He states that he like to go to [facility] get back on his medications. The patient currently denies any alcohol or drugs. Medical record indicates he was just here a few weeks ago with amphetamines and cocaine on his drug screen. Patient denies any fever or chills. No chest pain or shortness breath. No nausea vomiting. No abdominal pain. No urinary symptoms. PFSH Past Medical History ADHD: Yes Bipolar Disorder: Yes Depression: Yes Cancer: No Cardiovascular Problems: Yes (HTN) Diabetes: No Diminished Hearing: No Hypertension: Yes Psychiatric: Yes Immunizations Current: Yes Migraines: No Schizophrenia: Yes Seizures: No Thyroid Disease: No Ulcer: No Tetanus Vaccination: Unknown Past Surgical History Surgical History: No Previous Surgery Appendectomy: No Cholecystectomy: No Other Surgery: No Social History Alcohol Use: Yes (case beer per day) Tobacco Use: Yes (one pack) Substance Use: Yes (COCAINE CRACK AND METHAMPHEDIMINE) Allergies-Medications (Allergen,Severity, Reaction): Coded Allergies: No Known Allergies (Verified , 02/11/17) Reported Meds & Prescriptions Reported Meds & Active Scripts Active No Active Prescriptions or Reported Medications Review of Systems Except as stated in HPI: all other systems reviewed are Neg Psychiatric: Positive: Depression, Substance Abuse, No: Anxiety, Suicidal Ideations, Disorder of Thought, Mood Disorder, Homicidal Ideation Physical Exam Narrative GENERAL: Well-nourished, well-developed patient. The patient appears somnolent. He falls asleep readily. SKIN: Warm and dry. HEAD: Normocephalic and atraumatic. EYES: No scleral icterus. No injection or drainage. ENT: No nasal drainage noted. Mucous membranes pink. Airway patent. NECK: Supple, trachea midline. Moves head freely without obvious discomfort. CARDIOVASCULAR: Regular rate and rhythm without murmurs, gallops, or rubs. RESPIRATORY: Breath sounds equal bilaterally. No accessory muscle use. GASTROINTESTINAL: Abdomen soft, non-tender, nondistended. EXTREMITIES: No cyanosis or edema. BACK: Nontender without obvious deformity. No CVA tenderness. NEURO: Patient is alert and oriented. no sensorimotor deficits. Nonfocal. Normal speech. PSYCH: No delusions. No auditory or visual hallucinations. Data Data Last Documented VS Vital Signs Date Time Temp Pulse Resp B/P Pulse Ox O2 Delivery O2 Flow Rate FiO2 02/28/17 02:01 97.6 88 20 126/72 96 Orders Complete Blood Count With Diff (02/28/17 02:01) Comprehensive Metabolic Panel (02/28/17 02:01) Psych Screen (02/28/17 02:01) Drug Screen, Random Urine (02/28/17 02:01) Alcohol (Ethanol) (02/28/17 02:01) Salicylates (Aspirin) (02/28/17 02:01) Tylenol (Acetaminophen) (02/28/17 02:01) Valproic Acid (Depakene) (02/28/17 02:12) Labs Laboratory Tests Test 02/28/17 02:12 White Blood Count 10.9 TH/MM3 Red Blood Count 4.87 MIL/MM3 Hemoglobin 14.7 GM/DL Hematocrit 42.6 % Mean Corpuscular Volume 87.5 FL Mean Corpuscular Hemoglobin 30.2 PG Mean Corpuscular Hemoglobin 34.5 % Concent Red Cell Distribution Width 13.9 % Platelet Count 337 TH/MM3 Mean Platelet Volume 7.7 FL Neutrophils (%) (Auto) 47.8 % Lymphocytes (%) (Auto) 38.4 % Monocytes (%) (Auto) 8.6 % Eosinophils (%) (Auto) 3.9 % Basophils (%) (Auto) 1.3 % Neutrophils # (Auto) 5.2 TH/MM3 Lymphocytes # (Auto) 4.2 TH/MM3 Monocytes # (Auto) 0.9 TH/MM3 Eosinophils # (Auto) 0.4 TH/MM3 Basophils # (Auto) 0.1 TH/MM3 CBC Comment DIFF FINAL Differential Comment MDM Medical Decision Making Medical Screen Exam Complete: Yes Emergency Medical Condition: Yes Medical Record Reviewed: Yes Differential Diagnosis MDM: High Differential diagnoses: Schizophrenia, schizoaffective disorder, bipolar, anxiety, depression, adjustment reaction, mood disorder NOS, ODD, depressive disorder NOS, dementia, dementia with agitation, psychosis NOS, substance induced mood disorder, intermittent explosive disorder, Asperger syndrome, infection,electrolyte abnormality, malingering. Narrative Course Mental health screening discussed with the patient. Psychiatric screen ordered. The patient is been medically clear. This is bipolar, medical clearance for psych admission Diagnosis Primary Impression: bipolar Additional Impression: Medical clearance for psychiatric admission Scripts No Active Prescriptions or Reported Meds Condition: Stable [facility] Live Feb 28, 2017 02:31
[2017-02-28 02:36] LABS: ALT (GPT) 19 U/L (12-78); ANION GAP 6 MEQ/L (5-15); AST (GOT) 12 U/L (15-37); BICARBONATE 26.8 MEQ/L (21.0-32.0); BLOOD UREA NITROGEN 13 MG/DL (7-18); CHLORIDE 104 MEQ/L (98-107); GLOMERULAR FILTRATION RATE 112 ML/MIN (>89); SODIUM (NA) 137 MEQ/L (136-145)
[2017-02-28 02:39] LABS: ACETAMINOPHEN LESS THAN 2.0 MCG/ML (10.0-30.0); ALKALINE PHOSPHATASE 104 U/L (45-117); TOTAL BILIRUBIN ADULT 0.2 MG/DL (0.2-1.0)
== END 2017-02-28 08:25 | disposition home or self-care (01) ==
LOC: NEPD 01:53
DX: F31.9 Bipolar disorder, unspecified (principal); I10 Essential (primary) hypertension; F20.9 Schizophrenia, unspecified; F90.9 Attention-deficit hyperactivity disorder, unspecified type; F17.210 Nicotine dependence, cigarettes, uncomplicated; F14.90 Cocaine use, unspecified, uncomplicated; F15.90 Other stimulant use, unspecified, uncomplicated
CPT/HCPCS: 80053; 80164; 80307; 85025; 99285